=== PATIENT | female | born 1980 | race American Indian/Alaskan Native ===

== ENCOUNTER 2016-10-21 18:35 | Inpatient (IN) | payer MEDICAID ==
[2016-10-21] MEDS ORDERED: LACTATED RINGERS 1,000 ML ONE (19:53)
--- NOTE | 2016-10-21 20:07 | History and Physical Report ---
History of Present Illness Date of examination: 10/21/16 Date of admission: 10/21/16 19:45 Chief complaint: No movement since last night, 29w1d. Confirmed demise by official bedside u/s. History of present illness: EDC Calculations by LMP: 12/31/2016 Past History : 5 Term Births: 3 Premature Births: 0 Living Children: 3 Para: 3 Mult. Births: 0 Prev : 3 Prev. attempt? 1 Aborta: 1 Spont. Ab: 1 # 1 Delivery date: 1994 Weeks Gestation: 39 labor: no Delivery type: Anesthesia type: epidural Delivery location: [place] Sex: Male weight: 8#6 Comments: failure to progress - 5cm # 2 Delivery date: 1999 Weeks Gestation: term labor: no Delivery type: Delivery location: [place] Sex: Male weight: 8#15 Comments: Breech # 3 Delivery date: 2005 Weeks Gestation: term labor: no Delivery type: Delivery location: [place] Infant Sex: Female weight: 7#5 Comments: Pre-e. 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 Infection History Hx of STD: none HIV Risk Eval: no Hepatitis B Risk Eval: low risk Varicella/Chicken Pox Status: Previous Disease TB Risk: no Genetic History ADVANCED MATERNAL AGE Congenital Heart Defect: Mom: no Dad: no Kamla Disease: Mom: no Dad: no Thalassemia Mom: no Dad: no Neural Tube Defect Mom: no Dad: no Down's Syndrome Mom: no Dad: no Supa-Sachs Mom: no Dad: no Sickle Cell Disease/Trait Mom: no Dad: yes Comments: FOC SCT Hemophilia Mom: no Dad: no Muscular Dystrophy Mom: no Dad: no Cystic Fibrosis Mom: no Dad: no [place] Chorea Mom: no Dad: no Mental Retardation Mom: no Dad: no Fragile X Mom: no Dad: no Other Genetic/Chromosomal Disorder Mom: no Dad: no Child w/other defect Mom: no Dad: no Enviromental Exposures Xray Exposure: no Medication, drug, or alcohol use since LMP: no Chemical/Other Exposure: no Exposure to Cat Liter: no Hx of Parvovirus (Fifth Disease): no 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 denies: smoking, alcohol abuse, prescription drug abuse , IV drug use - Obstetrical History Expected Date of Delivery: 12/31/16 Actual Gestation: 29 Week(s) 6 Day(s) : 5 Para: 3 Hx # Term Pregnancies: 3 Number of Pregnancies: 0 Spontaneous Abortions: 1 Induced : 0 Number of Living Children: 3 Medications and Allergies Allergies Allergy/AdvReac Type Severity Reaction Status Date / Time No Known Allergies Allergy Verified 10/21/16 18:59 Review of Systems All systems: negative - Vital Signs Vital signs: Vital Signs Pulse BP Pulse Ox 83 149/91 97 10/21/16 18:57 10/21/16 18:57 10/21/16 18:57 Temp Pulse Resp BP Pulse Ox 98.6 F 70 18 137/85 98 10/21/16 19:07 10/21/16 19:47 10/21/16 19:07 10/21/16 19:44 10/21/16 19:47 - Physical Exam Breasts: Positive: normal Cardiovascular: Regular rate Lungs: Positive: Clear to auscultation, Normal air movement Abdomen: Positive: normal appearance, soft Genitourinary (Female): Positive: normal external genitalia, normal perenium Vulva: both: normal Vagina: Positive: normal moisture Uterus: Positive: normal size, normal contour Anus/Rectum: Positive: normal perianal skin Extremities: Positive: normal Deep Tendon Reflex Grade: Normal +2 - Obstetrical FHR: other (no FHT, demise confirmed with bedside u/s) Results All other labs normal. Laboratory Data-Patient Name: LAYTON SMITH Test Date Result Blood Type 06/20/2016 O Rh 06/20/2016 Positive Antibody Screen negative Rubella 06/20/2016 immune Serology (RPR) 06/20/2016 non-reactive HBsAg 06/20/2016 Negative Hemoglobin 09/26/2016 11.3 Hematocrit 09/26/2016 34.5 Platelets 06/20/2016 276 [id number] Chlamydia DNA 05/24/2016 Negative GC DNA/Culture 05/24/2016 Urine Culture 06/20/2016 Final report Group B Strep cult TNP PAP 11/13/2015 normal HIV 06/20/2016 Negative AFP/Quad Screen 07/28/2016 Glucola Test 3hr GTT (Fasting) 1 hr 2 hr 3 hr [facility]-Patient Name:LAYTON SMITH Test Date Result Varicella Ab Sickle Cell 06/20/2016 Negative PPD Fibronectin Cystic Fibrosis Negative Parvovirus Immune TSH Free T4 Hepatitis C ALT AST Uric Acid Creatinine 24 hr Urine Protein PANTERA Assessment and Plan 36y/o , hx c/s x 3, 29w6d. Patient called office around 1600 today and c/o decreased movement but states she was at work and admits to not paying much attention. Once she got home, she attempted FKC and could not illicit movement. No FHT asculted in triage and demise confirmed by official bedside u/s. complications: referred to [facility] d/t AMA and hx pre-e. Patient had unspecified chest pain @ 18 weeks and was referred to cardiology and cleared. Dr. Velarde aware and plan is to do c/s @ 2000. Patient coping well with news of loss, offered to call [place] or support person but patient declined. FOC is currently out of the state. - Patient Problems (1) Previous section Current Visit: Yes Status: Acute Plan to address problem: Prep for repeat c/s 2200 tonight (patient last ate @ 1700, she also needs to wait for child custody evaluator) (2) 29 weeks gestation of Current Visit: Yes Status: Acute (3) demise in cabello greater than 22 weeks gestation, antepartum Current Visit: Yes Status: Acute (4) Elevated blood pressure affecting in third trimester, antepartum Current Visit: Yes Status: Acute Plan to address problem: Unsure if initial b/p r/t emotional distress, patient does have Hx pre-e previous Pre-e and DIC labs ordered
[2016-10-21 20:13] LABS: Basophils % (Auto) 0.6 % (0.0-1.8); Eosinophils % (Auto) 0.9 % (0.0-4.3); Hematocrit 36.7 % (30.3-42.9); Hemoglobin 12.4 gm/dl (10.1-14.3); Mean Corpuscular HGB Conc 34 % (30-34); Mean Corpuscular Hemoglobin 33 pg (28-32); Mean Corpuscular Volume 97 fl (79-97); Platelet Count 206 K/mm3 (140-440); Red Blood Count 3.78 M/mm3 (3.65-5.03); Red Cell Distribution Width 13.8 % (13.2-15.2); White Blood Count 6.9 K/mm3 (4.5-11.0)
[2016-10-21 20:22] LABS: INR 0.94 (0.87-1.13)
[2016-10-21 20:23] LABS: Partial Thromboplastin Time 25.6 Sec. (24.2-36.6)
[2016-10-21] MEDS ORDERED: EMLA TP PRN (20:33)
[2016-10-21] MEDS ORDERED: BICITRA PO ONE (20:33)
[2016-10-21] MEDS ORDERED: REGLAN IV ONE (20:33)
[2016-10-21] MEDS ORDERED: PEPCID IV ONE (20:33)
[2016-10-21 20:49] LABS: Alanine Aminotransferase 18 units/L (7-56); Albumin 3.5 g/dL (3.9-5); Albumin/Globulin Ratio 1.1 %; Alkaline Phosphatase 83 units/L (35-129); Anion Gap 17 mmol/L; Bilirubin,Total 0.4 mg/dL (0.1-1.2); Blood Urea Nitrogen 6 mg/dL (7-17); Calcium 8.8 mg/dL (8.4-10.2); Carbon Dioxide 21 mmol/L (22-30); Chloride 100.8 mmol/L (98-107); Glucose 83 mg/dL (65-100); Potassium 3.9 mmol/L (3.6-5.0); Sodium 135 mmol/L (137-145); Total Protein 6.7 g/dL (6.3-8.2)
[2016-10-21] MEDS ORDERED: PITOCin/NS 20 UNIT/1000ML DRIP 20 UNITS/1,000 ML BAG IV SCH (21:00)
[2016-10-21] MEDS ORDERED: ANCEF/STERILE WATER 2 GM/20 ML 2 GM/20 ML SYRINGE IV NR (21:00)
[2016-10-21] MEDS ORDERED: LACTATED RINGERS 1,000 ML IV SCH (21:00)
[2016-10-21] MEDS ORDERED: MORPHINE ONE (21:59)
--- NOTE | 2016-10-21 22:03 | Event Note ---
Date: 10/21/16 Patient resting in bed. Patient understandably subdued. Patient informed the risks of the surgery include bleeding possibly bleeding heavy enough to require blood transfusion, infection possible damage to bowel bladder ureter. All questions answered. Patient agrees to proceed
[2016-10-21] MEDS ORDERED: ZOFRAN ONE (22:24)
[2016-10-21] MEDS ORDERED: NACL 0.9% IR ONE (22:32)
[2016-10-21] MEDS ORDERED: WATER FOR IRRIG STERILE IR ONE (22:32)
[2016-10-21] MEDS ORDERED: MINERAL OIL ONE (22:43)
[2016-10-21] MEDS ORDERED: DECADRON ONE (23:39)
[2016-10-21] MEDS ORDERED: TORADOL ONE (23:39)
[2016-10-21] MEDS ORDERED: SODIUM CHLORIDE FLUSH SYRINGE 10 ML IV PRN (23:45)
--- NOTE | 2016-10-21 23:54 | Operative Report ---
Operative Report Operative Report: Date of procedure: 10/21/2016 Pre-operative diagnosis: Intrauterine at 29 weeks with intrauterine demise with history of 3 previous sections Post-operative diagnosis: Same plus severe pelvic adhesive disease and uterine fibroids Procedure name(s): Repeat low transverse section with lysis of adhesions Surgeon: Stephane Velarde MD Shot Grinder Operator: Anesthesia: Spinal EBL: 700 mL Complications: None Findings: Patient had adhesions between the anterior abdominal wall and anterior uterus involving omentum and dense adhesions between the anterior uterus and bladder. Male infant Apgars 0 at 1 minute and 0 at 5 minutes. Approximately 6 cm of clotted blood in the umbilical cord near the . Patient uterus had multiple small leiomyomata. Specimen(s): Placenta Procedure: The patient was brought to the operating room. A spinal was placed without any complications. She was then placed in left lateral tilt. Prepped and draped in the usual sterile manner. After testing for adequate anesthesia level, a Pfannenstiel incision was made through her previous scar. This incision was taken down to the fascia. The fascia was then nicked in the midline. This incision was extended out laterally with Hoang scissors. The fascia was then sharply and bluntly from the underlying rectus muscles. The rectus muscles were bluntly and sharply . The peritoneum was then entered with the monorail charger operator's fingers. This incision was spread vertically with care not to damage the bladder below. The bladder flap was then formed sharply and bluntly with Metzenbaum scissors. The [place] self- retaining tractor was then placed without any difficulty. A transverse incision was made in lower uterine segment. This incision was extended laterally with the operators fingers. The amniotic sac was then entered bluntly with the monorail charger operator's fingers. The was delivered from the vertex position. Cord was double clamped and cut. The infant was then passed to the nurse. The above scores were given. The placenta was then bluntly removed. The uterus could not be externalized due to adhesions and the uterus was wiped clean the remaining products. The uterine incision was closed in layers. The first incision was closed in a locking manner using 0 Vicryl. This was followed by imbricating stitch also with 0 Vicryl. This closure was hemostatic. The bladder flap was copiously irrigated and found to be hemostatic. The pelvis was copiously irrigated and found to be hemostatic. The retractors were removed. The rectus muscles were inspected and found to be hemostatic. The fascia was then closed in a running manner using 0 Vicryl. This incision was hemostatic irrigation Bovie. The skin was reapproximated with 4-0 Vicryl subcuticularly. The patient tolerated procedure well. Her urine was clear. Instrument count was incorrect. Bovie scratch pad was missing. Patient had a portable KUB done on the operating table which showed no evidence of foreign objects.The patient was accompanied to recovery room in good condition
[2016-10-21] MEDS ORDERED: PHENERGAN PR PRN (23:56)
[2016-10-21] MEDS ORDERED: NARCAN 0.4 MG/1 ML IV PRN (23:56)
[2016-10-21] MEDS ORDERED: DILAUDID IV PRN (23:56)
[2016-10-21] MEDS ORDERED: PHENERGAN PO PRN (23:56)
[2016-10-21] MEDS ORDERED: ZOFRAN IV PRN (23:56)
--- NOTE | 2016-10-21 23:59 | Post Anesthesia Evaluation ---
- Post Anesthesia Evaluation Patient Participated: Yes Airway Patent: Yes Stable Respiratory Function: Yes Nausea/Vomiting: No Temp > 96.8F: Yes Pain Manageable: Yes Adequeate Hydration: Yes Anesthesia Complications: No Block Receding Appropriately: Yes Patient on Ventilator: No
--- NOTE | 2016-10-21 23:59 | Anesthesia Consultation ---
Anesthesia Consult and Med Hx Date of service: 10/21/16 - Airway Anesthetic Teeth Evaluation: Good ROM Head & Neck: Adequate Mental/Hyoid Distance: Adequate Mallampati Class: Class II Intubation Access Assessment: Probably Good - Pulmonary Exam CTA: Yes - Cardiac Exam Cardiac Exam: RRR - Pre-Operative Health Status ASA Pre-Surgery Classification: ASA2 Proposed Anesthetic Plan: Spinal - Pulmonary Hx Asthma: No COPD: No Hx Pneumonia: No - Cardiovascular System Hx Hypertension: No - Central Nervous System Hx Seizures: No Hx Psychiatric Problems: No - Endocrine Hx Renal Disease: No Hx End Stage Renal Disease: No Hx Hypothyroidism: No Hx Hyperthyroidism: No - Hematic Hx Anemia: No Hx Sickle Cell Disease: No - Other Systems Hx Alcohol Use: No
--- NOTE | 2016-10-21 23:59 | Anesthesia Day of Surgery ---
Anesthesia Day of Surgery - Day of Surgery Patient Examined: Yes Patient H&P Reviewed: Yes Patient is NPO: Yes
--- NOTE | 2016-10-22 00:02 | XRay Report ---
FINAL REPORT EXAM: XR ABDOMEN 1V AP HISTORY: ITEM MISSING FROM SURGICAL COUNT COMPARISONS: None. FINDINGS: AP portable view of the pelvis No foreign radiodense object identified. Gravid uterus. Probable adjacent free air in the pelvis status post . Imaged portion of the skeleton is unremarkable. IMPRESSION: No radiodense object identified. If there is persistent clinical concern, consider a separate radiograph of the object missing from the surgical count and comparison with this examination for more detailed and sensitive evaluation.
[2016-10-22] MEDS ORDERED: LANSINOH TP PRN (01:00)
[2016-10-22] MEDS ORDERED: PITOCin/NS 20 UNIT/1000ML DRIP 20 UNITS/1,000 ML BAG IV SCH (01:00)
[2016-10-22] MEDS ORDERED: TUCKS PAD TP PRN (01:00)
[2016-10-22] MEDS ORDERED: NARCAN 0.4 MG/1 ML IV PRN (01:00)
[2016-10-22] MEDS ORDERED: SODIUM CHLORIDE FLUSH SYRINGE 10 ML IV NR (01:00)
[2016-10-22] MEDS: D5LR 1,000 ML IV SCH ×3 (01:29→17:46)
[2016-10-22] MEDS: TORADOL IV SCH ×4 (06:00→19:15)
[2016-10-22] MEDS: PRENATAL VITAMIN PO SCH (09:30)
[2016-10-22] MEDS: FEOSOL PO SCH (09:30)
[2016-10-22] MEDS: ANCEF/NS 1 GM/50 ML 1 GM/50 ML BAG IV SCH ×2 (09:30→17:45)
[2016-10-22] MEDS ORDERED: ANCEF/NS 1 GM/50 ML 1 GM/50 ML BAG IV NR (11:00)
--- NOTE | 2016-10-22 11:32 | Progress Note ---
Assessment and Plan - Patient Problems (1) Delivered by section Current Visit: Yes Status: Acute Plan to address problem: Postoperative day #1. Discuss operative findings with patient and questions answered. Patient without fever. We'll ambulate in halls. We will continue routine postoperative care. Patient's postoperative hematocrit pending (2) demise in cabello greater than 22 weeks gestation, antepartum Current Visit: Yes Status: Acute Plan to address problem: Discussed operative findings. Patient unsure about having an autopsy performed. Placental be sent to pathology. Subjective Date of service: 10/22/16 Patient Reports: Positive: feels better, still having pain, pain is less, no flatus, nausea, vomiting (last night), afebrile Objective Vital Signs - 12hr 10/21/16 10/21/16 10/21/16 23:44 23:46 23:50 Temperature 97.6 F Pulse Rate 66 56 L Pulse Rate [ Left From Monitor] Respiratory 16 16 Rate Blood Pressure Blood Pressure [Left Arm] O2 Sat by Pulse 97 96 99 Oximetry 10/21/16 10/22/16 10/22/16 23:56 00:00 00:05 Temperature Pulse Rate 58 L 55 L 59 L Pulse Rate [ Left From Monitor] Respiratory 16 9 L 12 Rate Blood Pressure 151/86 153/89 Blood Pressure [Left Arm] O2 Sat by Pulse 98 98 99 Oximetry 10/22/16 10/22/16 10/22/16 00:10 00:15 00:20 Temperature Pulse Rate 69 56 L 60 Pulse Rate [ Left From Monitor] Respiratory 12 19 18 Rate Blood Pressure 157/89 159/89 150/81 Blood Pressure [Left Arm] O2 Sat by Pulse 99 97 97 Oximetry 10/22/16 10/22/16 10/22/16 00:25 00:30 00:35 Temperature Pulse Rate 60 64 64 Pulse Rate [ Left From Monitor] Respiratory 19 18 17 Rate Blood Pressure 138/89 142/93 147/85 Blood Pressure [Left Arm] O2 Sat by Pulse 98 98 97 Oximetry 10/22/16 10/22/16 10/22/16 00:40 00:45 00:50 Temperature Pulse Rate 66 66 67 Pulse Rate [ Left From Monitor] Respiratory 15 15 18 Rate Blood Pressure 143/83 145/86 149/83 Blood Pressure [Left Arm] O2 Sat by Pulse 97 97 98 Oximetry 0310/22/16 10/22/16 01:00 01:30 06:00 Temperature 98.3 F 97.7 F Pulse Rate Pulse Rate [ 70 Left From Monitor] Respiratory 20 20 Rate Blood Pressure Blood Pressure 132/67 [Left Arm] O2 Sat by Pulse Oximetry 10/22/16 10/22/16 06:10 09:39 Temperature 97.5 F L 97.7 F Pulse Rate Pulse Rate [ 70 70 Left From Monitor] Respiratory 18 18 Rate Blood Pressure Blood Pressure 113/67 120/76 [Left Arm] O2 Sat by Pulse Oximetry - General physical appearance well developed, moderate pain, obese - Respiratory normal respiratory effort - Abdomen soft, tender - Genitourinary normal external genitalia - Integumentary no rash, no growths, no abnormal pigmentation - Neurologic normal coordination - Psychiatric oriented to time, oriented to person, oriented to place, speech is normal, memory intact, other (patient is appropriately mourning) - Labs 10/21/16 19:45 10/21/16 19:45 Diabetes panel 10/21/16 Range/Units 19:45 Sodium 135 L (137-145) mmol/L Potassium 3.9 (3.6-5.0) mmol/L Chloride 100.8 (98-107) mmol/L Carbon Dioxide 21 L (22-30) mmol/L BUN 6 L (7-17) mg/dL Creatinine 0.5 L (0.7-1.2) mg/dL Glucose 83 (65-100) mg/dL Calcium 8.8 (8.4-10.2) mg/dL AST 24 (5-40) units/L ALT 18 (7-56) units/L Alkaline Phosphatase 83 (35-129) units/L Total Protein 6.7 (6.3-8.2) g/dL Albumin 3.5 L (3.9-5) g/dL Calcium panel 10/21/16 Range/Units 19:45 Calcium 8.8 (8.4-10.2) mg/dL Albumin 3.5 L (3.9-5) g/dL Pituitary panel 10/21/16 Range/Units 19:45 Sodium 135 L (137-145) mmol/L Potassium 3.9 (3.6-5.0) mmol/L Chloride 100.8 (98-107) mmol/L Carbon Dioxide 21 L (22-30) mmol/L BUN 6 L (7-17) mg/dL Creatinine 0.5 L (0.7-1.2) mg/dL Glucose 83 (65-100) mg/dL Calcium 8.8 (8.4-10.2) mg/dL Adrenal panel 10/21/16 Range/Units 19:45 Sodium 135 L (137-145) mmol/L Potassium 3.9 (3.6-5.0) mmol/L Chloride 100.8 (98-107) mmol/L Carbon Dioxide 21 L (22-30) mmol/L BUN 6 L (7-17) mg/dL Creatinine 0.5 L (0.7-1.2) mg/dL Glucose 83 (65-100) mg/dL Calcium 8.8 (8.4-10.2) mg/dL Total Bilirubin 0.4 (0.1-1.2) mg/dL AST 24 (5-40) units/L ALT 18 (7-56) units/L Alkaline Phosphatase 83 (35-129) units/L Total Protein 6.7 (6.3-8.2) g/dL Albumin 3.5 L (3.9-5) g/dL
[2016-10-22 13:02] LABS: Hematocrit 23.3 % (30.3-42.9); Hemoglobin 7.7 gm/dl (10.1-14.3)
[2016-10-22 15:45] LABS: Hematocrit 21.7 % (30.3-42.9); Hemoglobin 7.2 gm/dl (10.1-14.3)
[2016-10-22] MEDS ORDERED: ANCEF/NS 1 GM/50 ML 1 GM/50 ML BAG IV ONE (17:21)
[2016-10-22] MEDS ORDERED: NACL 0.9% 500 ML 500 ML IV ONE (18:25)
[2016-10-22] MEDS ORDERED: TYLENOL PO ONE (18:30)
[2016-10-22] MEDS ORDERED: BENADRYL PO NR (19:00)
[2016-10-23] MEDS: MOTRIN PO PRN (00:35)
[2016-10-23 08:56] LABS: Hematocrit 25.8 % (30.3-42.9); Hemoglobin 8.5 gm/dl (10.1-14.3)
[2016-10-24] MEDS: MOTRIN PO PRN ×2 (04:35→09:57)
[2016-10-24] MEDS: NORCO 5/325 PO PRN ×2 (04:40→09:57)
--- NOTE | 2016-10-24 08:05 | Discharge Summary ---
Providers - Providers Date of Admission: 10/21/16 19:45 Date of discharge: 10/24/16 (s/p repeat c/s ; IUFD) Attending physician: LV CLEMONS 10/23/16 15:34 Consult to Case Management [CONS] Routine Services Needed at Discharge: Fluorescent Solution Mixer Notified:: yes Phone number called:: [phone] Was contact made?: Yes If yes, spoke with:: margarito Time called:: 15:35 Comment:: IUFD @ 29+ weeks Primary care physician: LV CLEMONS Hospitalization Reason for admission: IUFD Delivery: Procedure: repeat low transverse Episiotomy: none Laceration: none Incision: normal, dry, intact Other procedures: none complications: transfusion (will rx iron @ d/c) Discharge diagnosis: intrapartum demise [place] baby: male Hospital course: repeat c/s; prev X 2; IUFD; lysis of adhesions during surgery Pt w/o complaint Will f/u with groups via [employer] VSS FF below umb Lochia scant H&H 04/07 drop r/t blood loss from surgery; will RX iron @ d/c Doing well s /p section; appropriate grieving Pt has plans to join support grp via [employer]. P: d/c today with instructions Pt will f/u with Monday for care. Appt to be made prior to d/c Condition at discharge: Good Disposition: DISCHARGED TO HOME OR SELFCARE - Discharge Diagnoses (1) Delivered by section Status: Acute Comment: rto 1 week (2) demise Status: Acute Comment: pt will join support group and she states she has support at home and [facility] Plan - Discharge Medications Prescriptions: Docusate Sodium [Colace] 100 mg PO BID PRN #60 capsule PRN Reason: Constipation Ferrous Sulfate [Feosol 325 MG tab] 325 mg PO BID #60 tablet Ibuprofen [Motrin 800 MG tab] 800 mg PO Q6H PRN #30 tablet PRN Reason: Pain oxyCODONE /ACETAMINOPHEN [Percocet 5/325 mg] 1 - 2 tab PO Q4H PRN #30 tablet PRN Reason: Pain, Moderate - Provider Discharge Summary Activity: routine, no sex for 6 weeks, no heavy lifting 4 weeks, no strenuous exercise Diet: routine Instructions: routine Additional instructions: [] Smoking cessation referral if applicable(refer to patient education folder for contact #) [] Refer to [facility] Booklet Call your doctor immediately for: * Fever > 100.5 * Heavy vaginal bleeding ( >1 pad per hour) * Severe persistent headache * Shortness of breath * Reddened, hot, painful area to leg or breast * Drainage or odor from incision. * Keep incision clean and dry at all times and follow doctor's instructions regarding bathing/showering - Follow up plan Follow up: LV CLEMONS MD [Primary Care Provider] - 10/31/16 (please keep appointment as scheduled with on Monday10/31/16 @ 1015 Take medications as prescribed. Call with concerns. )
[2016-10-24] MEDS: PRENATAL VITAMIN PO SCH (09:57)
[2016-10-24] MEDS: FEOSOL PO SCH (09:57)
--- NOTE | 2016-10-24 10:15 | Ultrasound Report ---
OB LIMITED Technique: Transabdominal ultrasound with Doppler interrogation. Gestation: Single Position: Breech Heart Rate: No heart tones could be detected.
[2016-10-24 15:36] VITALS: BP 140/74
== END 2016-10-24 12:45 | disposition home or self-care (01) | DRG 765 ==
LOC: TRG 18:35 → LD 19:45 → TRG 19:45 → OB 10-22 01:23
PROVIDERS: ADMIT Obstetrics & Gynecology; ATTEND Obstetrics & Gynecology
PROC: 10D00Z1 Extraction of Products of Conception, Low, Open Approach (ICD-10-PCS; principal; 2016-10-21)
PROC: 0UN90ZZ Release Uterus, Open Approach (ICD-10-PCS; 2016-10-21)
PROC: 30233N1 Transfusion of Nonautologous Red Blood Cells into Peripheral Vein, Percutaneous Approach (ICD-10-PCS; 2016-10-21)
DX: O36.4XX0 Maternal care for intrauterine death, not applicable or unspecified (principal); D62 Acute posthemorrhagic anemia; O34.211 Maternal care for low transverse scar from previous cesarean delivery; O99.89 Other specified diseases and conditions complicating pregnancy, childbirth and the puerperium; N73.6 Female pelvic peritoneal adhesions (postinfective); O99.284 Endocrine, nutritional and metabolic diseases complicating childbirth; E78.5 Hyperlipidemia, unspecified; Z3A.29 29 weeks gestation of pregnancy; Z37.1 Single stillbirth; O09.523 Supervision of elderly multigravida, third trimester
CPT/HCPCS: 36415; 74000; 76815; 80053; 85014; 85018; 85025; 85379; 85384; 85610; 85730; 86592; 86850; 86900; 86901; 86920; 88307; C1765; J0690; J1100; J1170; J1885; J2270; J2405; J2590; J2765; J7040; J7120; J7121; P9016; Q0169

== ENCOUNTER 2017-03-10 21:13 | Emergency (ER) | payer SELFPAY | END 2017-03-10 22:05 | disposition left against medical advice (07) | LOC: ED 21:13 | DX: R10.30 Lower abdominal pain, unspecified (principal); Z53.21 Procedure and treatment not carried out due to patient leaving prior to being seen by health care provider ==

== ENCOUNTER 2018-12-02 17:14 | Inpatient (IN) | payer MEDICAID ==
[2018-12-02] MEDS ORDERED: HEPARIN IV ONE (17:19)
[2018-12-02] MEDS ORDERED: NACL 0.9% 1000 ML 1,000 ML IV ONE (17:19)
[2018-12-02] MEDS ORDERED: ZOFRAN IV ONE (17:19)
[2018-12-02 17:35] LABS: Basophils # (Auto) 0.1 K/mm3 (0.0-0.1); Basophils % (Auto) 0.9 % (0.0-1.8); Eosinophils # (Auto) 0.1 K/mm3 (0.0-0.4); Eosinophils % (Auto) 1.1 % (0.0-4.3); Hematocrit 40.6 % (30.3-42.9); Hemoglobin 13.7 gm/dl (10.1-14.3); Lymphocytes # (Auto) 1.8 K/mm3 (1.2-5.4); Lymphocytes % (Auto) 32.4 % (13.4-35.0); Mean Corpuscular HGB Conc 34 % (30-34); Mean Corpuscular Volume 95 fl (79-97); Monocytes # (Auto) 0.6 K/mm3 (0.0-0.8); Monocytes % (Auto) 11.4 % (0.0-7.3); Platelet Count 302 K/mm3 (140-440); Red Blood Count 4.29 M/mm3 (3.65-5.03); Red Cell Distribution Width 12.4 % (13.2-15.2)
[2018-12-02] MEDS ORDERED: ATROPINE 0.1% (CARDIAC) ONE (17:39)
[2018-12-02] MEDS ORDERED: MORPHINE ONE (17:39)
[2018-12-02] MEDS ORDERED: XYLOCAINE CARDIAC IV ONE (17:39)
[2018-12-02] MEDS ORDERED: ADRENALIN ONE (17:39)
[2018-12-02] MEDS ORDERED: VERSED ONE (17:40)
[2018-12-02] MEDS ORDERED: MORPHINE IV ONE (17:40)
[2018-12-02] MEDS ORDERED: SUBLIMAZE ONE (17:40)
[2018-12-02] MEDS ORDERED: HEPARIN/NS 5000 UNIT/500ML(CATH LAB) 1,500 ML IR ONE (17:40)
[2018-12-02] MEDS ORDERED: NITROGLYCERIN SYRINGE 3 ML ONE (17:40)
[2018-12-02] MEDS ORDERED: XYLOCAINE 2% INFILTRATI ONE (17:40)
[2018-12-02] MEDS ORDERED: CALAN ONE (17:40)
[2018-12-02] MEDS ORDERED: NEO SYNEPHRINE/NS Syringe(OR USE) IV ONE (17:41)
[2018-12-02] MEDS ORDERED: NACL 0.9% 500 ML 500 ML ONE (17:41)
[2018-12-02 17:45] LABS: INR 0.89 (0.87-1.13)
[2018-12-02 17:46] LABS: Partial Thromboplastin Time 28.6 Sec. (24.2-36.6)
--- NOTE | 2018-12-02 17:47 | History and Physical Report ---
History of Present Illness Chief complaint: My chest hurts History of present illness: 38 YO Female with Obesity presents to ED for evaluation. Pt states that she experienced an acute onset of severe chest pain today while taking a shower. Pt states that pain is 10/10, substernal, localized to the left chest with radi ation to the left back, crushing and heavy in nature, sharp, constant, not worsened with exertion, not relieved with rest, associated with shortness of breath and diaphoresis. EMS notified, and upon arrival the patient was found to be in distress with EKG changes consistent with Acute [place]. Code STEMI called and the patient transported to [facility] ED. Pt seen and evaluated in ED and found to have Stable Angina with Acute [place]. Cardiology team consulted in ED. Pt taken emergently to the medical lab assistant for intervention. Pt admitted to ICU. Past History Past Medical History: other (Obesity) Past Surgical History: Social history: single. denies: smoking, alcohol abuse, prescription drug abuse Family history: diabetes, hypertension Medications and Allergies Allergies Allergy/AdvReac Type Severity Reaction Status Date / Time No Known Allergies Allergy Verified 10/21/16 18:59 Home Medications Medication Instructions Recorded Confirmed Last Taken Type Ferrous Sulfate [Feosol 325 MG tab] 325 mg PO BID #60 tablet 10/21/16 Unknown Rx Ibuprofen [Motrin 800 MG tab] 800 mg PO Q6H PRN #30 tablet 10/21/16 Unknown Rx oxyCODONE /ACETAMINOPHEN [Percocet 1 - 2 tab PO Q4H PRN #30 tablet 10/21/16 Unknown Rx 5/325 mg] Docusate Sodium [Colace] 100 mg PO BID PRN #60 capsule 10/24/16 Unknown Rx Active Meds: Active Medications Sodium Chloride (Nacl 0.9% 1000 Ml) 1,000 mls @ 42 mls/hr IV ONCE ONE Stop: 12/03/18 17:07 Last Admin: 12/02/18 17:36 Dose: 42 mls/hr Documented by: Nitroglycerin/Dextrose (Tridil Drip 50mg/250ml) 50 mg in 250 mls @ 3 mls/hr IV TITR PAULINO; Protocol Review of Systems Constitutional: no weight loss, no weight gain, no fever, no chills Ears, nose, mouth and throat: no ear pain, no ear discharge, no tinnitis, no decreased hearing, no nose pain Breasts: no change in shape, no swelling, no mass Cardiovascular: chest pain, shortness of breath, no orthopnea, no palpitations, no rapid/irregular heart beat, no dyspnea on exertion, no paroxysmal nocturnal dyspnea, no claudication, no phlebitis, no leg edema Respiratory: no cough, no cough with sputum, no excessive sputum, no hemoptysis, no shortness of breath Gastrointestinal: no nausea, no vomiting, no diarrhea, no constipation Genitourinary Female: no pelvic pain, no flank pain, no menorrhagia, no dysuria, no urinary frequency, no urgency Rectal: no pain, no incontinence, no bleeding Integumentary: no rash, no pruritis, no redness, no sores, no wounds Neurological: no paralysis, no weakness, no parathesias, no numbness, no seizures, no syncope Psychiatric: no anxiety, no memory loss, no change in sleep habits, no sleep disturbances, no hypersomnia, no change in appetite, no suicidal ideation Endocrine: no cold intolerance, no heat intolerance, no polydipsia, no polyuria, no nocturia, no excessive sweating Hematologic/Lymphatic: no easy bruising, no easy bleeding, no lymphadenopathy, no lymphedema Allergic/Immunologic: no urticaria, no allergic rhinitis, no wheezing, no persistent infections, no anaphylaxis, no angioedema Exam - Constitutional General appearance: Present: mild distress - EENT Eyes: Present: PERRL ENT: hearing intact, clear oral mucosa - Neck Neck: Present: supple, normal ROM - Respiratory Respiratory effort: normal Respiratory: bilateral: CTA - Cardiovascular Heart Sounds: Present: S1 & S2. Absent: rub, click - Extremities Extremities: pulses symmetrical, No edema Peripheral Pulses: within normal limits - Abdominal General gastrointestinal: Present: soft, non-tender, non-distended, normal bowel sounds Female genitourinary: Present: normal - Integumentary Integumentary: Present: clear, warm, dry - Musculoskeletal Musculoskeletal: gait normal, strength equal bilaterally - Psychiatric Psychiatric: appropriate mood/affect, intact judgment & insight, memory intact, agitated - Neurologic Neurologic: CNII-XII intact, moves all extremities Results - Labs CBC & Chem 7: 12/02/18 17:17 12/02/18 17:17 Labs: Abnormal lab results 12/02/18 Range/Units 17:17 RDW 12.4 L (13.2-15.2) % [place] % (Auto) 11.4 H (0.0-7.3) % Assessment and Plan - Patient Problems (1) ST elevation myocardial infarction (STEMI) of anterolateral wall Status: Acute Plan to address problem: Pt admitted to ICU, Cardiology consulted in ED. Pt taken urgently to lab clerk for intervention, supportive care, pain control, lipid panel, risk factor reduction. DAPT versus therapeutic anticoagulation as per cardiology team. The high probability of a clinically significant, sudden or life threatening deterioration of the [cardiac, respiratory, renal] system(s) required my full and direct attention, intervention and personal management. The aggregate critical care time was [65] minutes. This time is in addition to time spent performing reported procedures but includes the following: [x] Data Review and interpretation [x] Patient assessment and monitoring of vital signs [x] Documentation [x] Medication orders and management (2) Obesity Status: Acute Qualifiers: Body mass index: BMI 32.0-32.9 Plan to address problem: Balanced diet, increased physical activity at discharge (3) DVT prophylaxis Status: Acute Plan to address problem: SCD to BLE while in bed,
[2018-12-02] MEDS ORDERED: SODIUM CHLORIDE FLUSH SYRINGE 10 ML IV PRN (17:48)
--- NOTE | 2018-12-02 17:48 | Emergency Department Report ---
ED Chest Pain HPI - General Chief Complaint: Chest Pain Stated Complaint: STEMI Time Seen by Provider: 12/02/18 17:19 Source: patient, EMS Mode of arrival: Stretcher Limitations: No Limitations - History of Present Illness Initial Comments: Ms. Erin Lewis is a 38 yo female without significant past medical history who presents with severe sudden onset of chest pain while in the shower. The pain was so severe that she dropped to her knees in pain. No syncope. She immediately called 911. EMS dispatch in pressure to take 4 baby aspirins which she took prior to arrival. She arrived per EMS. I evaluated EKG transmitted prior to her arrival. Anterolateral STEMI NOTED ON EKG. I Immediately spoke with Radiation Control Technician Dr. Stafford. Code STEMI activated. Our junior legal secretary has notified Cath team. No family history of heart disease as she can recall MD Complaint: chest pain -: Sudden Onset: other (while in the shower) Pain Location: substernal, left chest Pain Radiation: back Severity scale (0 -10): 5 Quality: tightness, aching, heaviness, sharp Consistency: constant Improves With: nothing Worsens With: nothing re: nausea, dyspnea - Related Data Previous Rx's Medication Instructions Recorded Last Taken Type Ferrous Sulfate [Feosol 325 MG tab] 325 mg PO BID #60 tablet 10/21/16 Unknown Rx Ibuprofen [Motrin 800 MG tab] 800 mg PO Q6H PRN #30 tablet 10/21/16 Unknown Rx oxyCODONE /ACETAMINOPHEN [Percocet 1 - 2 tab PO Q4H PRN #30 tablet 10/21/16 Unknown Rx 5/325 mg] Docusate Sodium [Colace] 100 mg PO BID PRN #60 capsule 10/24/16 Unknown Rx Allergies Allergy/AdvReac Type Severity Reaction Status Date / Time No Known Allergies Allergy Verified 10/21/16 18:59 Heart Score - HEART Score History: Slightly suspicious EKG: Significant ST-depression Age: < 45 Risk factors: No known risk factors Troponin: 1-3x normal limit HEART Score: 3 ED Review of Systems ROS: Stated complaint: STEMI Other details as noted in HPI Comment: All other systems reviewed and negative Constitutional: denies: fever, malaise Respiratory: denies: cough Cardiovascular: denies: chest pain ED Past Medical Hx - Past Medical History Previous Medical History?: No Hx Hypertension: No Hx Congestive Heart Failure: No Hx Diabetes: No Hx Deep Vein Thrombosis: No Hx Renal Disease: No Hx Sickle Cell Disease: No Hx Seizures: No Hx Asthma: No Hx COPD: No Hx HIV: No - Surgical History Past Surgical History?: Yes Additional Surgical History: x4 - Family History Family history: diabetes, hypertension - Social History Smoking Status: Never Smoker Substance Use Type: None Other Social History: 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 Stopped working 6 months ago to stay at home with her young child. She has 5 children. - Medications Home Medications: Home Medications Medication Instructions Recorded Confirmed Last Taken Type Ferrous Sulfate [Feosol 325 MG tab] 325 mg PO BID #60 tablet 10/21/16 Unknown Rx Ibuprofen [Motrin 800 MG tab] 800 mg PO Q6H PRN #30 tablet 10/21/16 Unknown Rx oxyCODONE /ACETAMINOPHEN [Percocet 1 - 2 tab PO Q4H PRN #30 tablet 10/21/16 Unknown Rx 5/325 mg] Docusate Sodium [Colace] 100 mg PO BID PRN #60 capsule 10/24/16 Unknown Rx ED Physical Exam - General Limitations: No Limitations General appearance: alert, other (appears anxious in severe pain) - Head Head exam: Present: atraumatic, normocephalic - Eye Eye exam: Present: normal appearance - ENT ENT exam: Present: mucous membranes moist - Neck Neck exam: Present: normal inspection, full ROM - Respiratory Respiratory exam: Present: normal lung sounds bilaterally. Absent: respiratory distress, wheezes, rales, rhonchi - Cardiovascular Cardiovascular Exam: Present: regular rate, normal rhythm, normal heart sounds, other (equal radial pulses 2+). Absent: systolic murmur, diastolic murmur, rubs, gallop - GI/Abdominal GI/Abdominal exam: Present: soft, normal bowel sounds. Absent: distended, tenderness, guarding, rebound - Extremities Exam Extremities exam: Present: normal inspection - Back Exam Back exam: Present: normal inspection - Neurological Exam Neurological exam: Present: alert, oriented X3 - Psychiatric Psychiatric exam: Present: normal mood, anxious - Skin Skin exam: Present: warm, dry, intact, normal color. Absent: rash ED Medical Decision Making - Lab Data Result diagrams: 12/02/18 17:17 - EKG Data 12/02/18 17:45 EKG obtained 1721 Junctional rhythm rate 100 beats a minute wide QRS ST elevation V3 V4 V5 and V6 progressing from previously transmitted EKG - Medical Decision Making Anterolateral STEMI, Dr. Stafford evaluated Ms. Lewis in the ED. She took 4 baby aspirin tablets at home. Ordered heparin bolus and nitroglycin infusion. Admitted to hospitalist service as requested by cardiology service. Will be taken to engineering lab technician Critical Care Time: Yes Critical care time in (mins) excluding proc time.: 40 Critical care attestation.: If time is entered above; I have spent that time in minutes in the direct care of this critically ill patient, excluding procedure time. 40 minutes of critical care time excluding procedures were used in the care of the patient. Patient required multiple assessments and interventions. I reviewed the electronic medical record. I spoke with consultants involved in the care of the patient. ED Disposition Clinical Impression: ST elevation myocardial infarction (STEMI) of anterolateral wall Disposition: [id number] OP ADMIT IP TO THIS HOSP Is pt being admited?: Yes Does the pt Need Aspirin: No Condition: Stable
[2018-12-02 17:52] LABS: Creatine Kinase MB 2.7 ng/mL (0.0-4.0)
[2018-12-02 17:54] LABS: BUN/Creatinine Ratio 22; Blood Urea Nitrogen 13 mg/dL (7-17); Calcium 9.6 mg/dL (8.4-10.2); Hemolysis Index 8
[2018-12-02] MEDS: HEPARIN 10,000 UNITS/10 ML ONE ×2 (17:57→18:03)
[2018-12-02] MEDS ORDERED: TRIDIL DRIP 50MG/250ML 50 MG/250 ML BOTTLE IV SCH (18:00)
[2018-12-02] MEDS ORDERED: BRILINTA ONE (18:29)
[2018-12-02] MEDS ORDERED: ALUM-MAG HYDROX-SIMETH 200-200-20MG/5ML ONE (18:29)
[2018-12-02] MEDS ORDERED: COLACE PO PRN (19:00)
[2018-12-02 19:03] LABS: Chol/HDL Ratio 2.81 %; HDL Cholesterol 82 mg/dL (40-59); LDL Cholesterol,Direct 154 mg/dL (50-130)
[2018-12-02] MEDS ORDERED: HEPARIN/ 0.45% NACL-25,000 UNIT/500 ML 25,000 UNIT/500 ML BAG ONE (19:04)
[2018-12-02] MEDS ORDERED: TRIDIL DRIP 50MG/250ML 50 MG/250 ML BOTTLE IV ONE (19:13)
--- NOTE | 2018-12-02 19:47 | Cardiac Catherization Report ---
CARDIAC CATHETERIZATION AND CORONARY INTERVENTION REPORT CLINICAL INFORMATION: The patient is a 38-year-old female, who started having chest pain, severe while she was taking shower around 3:00-3:30 p.m. The pain is very severe, associated with shortness of breath and the whole anterior chest is hurting. The pain is so severe she called the paramedics and initial EKG showed sinus rhythm with ST elevations in the lateral precordial leads. After coming to the Emergency Room, her pain is some better, but the EKGs showed slightly sinus junctional tachycardia with prolonged QRS and ST elevations in the anterior leads suggest with acute anterolateral injury. Hence, the patient was taken to the catheterization laboratory on an emergency basis. PAST MEDICAL HISTORY: Essentially unremarkable. She accepts that she delivered a baby in 07/2018. Otherwise; no history of hypertension, diabetes or previous cardiac history. MEDICATION: Only medication she was on is vitamin. DESCRIPTION OF PROCEDURE: The patient was brought to the catheterization laboratory on an emergency basis. Right wrist area and forearm thoroughly cleansed with Betadine solution. Sterile drapes were applied. Local anesthesia was achieved using 2% Xylocaine. The patient received 2 mg of morphine in the Emergency Room. Right radial artery puncture was made using 21-gauge arterial puncture needle. Subsequently, 5-Cuban slender sheath was introduced. A 6-Cuban EBU 3.5 guiding catheter was advanced and engaged the left coronary artery. Angiogram showed RCA to be widely patent. Angiograms of the right and left coronary artery were obtained. Subsequently, procedure was converted to interventional procedure, namely imaging the LAD with intravascular ultrasound. At the end of the procedure angiogram showed no complications of dissection or perforation. Catheter and sheath were removed. Good hemostasis was achieved with radial band. Following findings were noted: HEMODYNAMICS: 1. Opening aortic pressure 138/88. 2. Left ventriculogram was not performed. 3. Right coronary artery dominant vessel arises normally from anterior cusp, angiographically smooth and normal. 4. Left coronary artery arises normally from left coronary cusp. Left main is short, no smooth or normal. Circumflex artery nondominant vessel is tortuous, but angiographically smooth and normal. 5. LAD in the proximal part without significant disease. However, starting from the high mid LAD to distal LAD shows diffuse narrowing. However, HUANG 3 flow was noted. No focal lesions were noted. After angiograms the patient's chest pain is completely improved. Hence, no balloon angioplasty or stenting was performed. However, considering her significant EKG findings and intravascular ultrasound of the LAD was performed. The patient has indwelling 6-Cuban EBU 3.5 guiding catheter. The patient was given 5000 units of heparin. The patient received 5000 units of heparin in the Emergency Room. In a standard fashion Responsys intravascular ultrasound catheter was advanced starting from the left main to the mid LAD. This showed left main to be 5 mm in size and without any significant disease appears to be normal. Proximal LAD, which is 4.5 mm in size without significant disease. Entire mid LAD shows diffuse disease throughout with moderate to severe plaque diffusely noted. In the proximal LAD, the patient's vessel size was found to be 4.0 x 4.5 mm. Lumen area was found with 2.4 x 3.2 with 5.6 square millimeter area. In the mid LAD size was found to be 4.0 x 4.5 mm size of the vessel with lumen area of 2.2 x 2.7 mm with 4.8 square millimeters. It is to be noted the mid LAD and distal LAD is diffusely diseased. No focal lesions were noted. Considering this, it was felt the patient's main problem is maybe is severe spasm of the LAD causing her EKG changes and chest pain. After the angiograms the patient did not have any chest pain and an EKG was performed immediately after the procedure, which showed no evidence of ST elevations with sinus rhythm at rate of 72 beats per minute and except for poor R-wave progression and low voltage complexes in the precordial leads. At the end of the procedure the patient is chest pain free. Vital signs have been stable. Rhythm has been stable throughout the procedure. The patient was sedated starting at 1757 with IV Versed and fentanyl after evaluation for moderate sedation. She was monitored throughout the procedure with EKG monitoring, hemodynamic monitoring and pulse oximetry. The patient tolerated it well. Monitoring the moderate sedation at 1820 hours. At the end of the procedure the patient is talking normally and moving all the extremities and breathing normally. FINAL IMPRESSION: Acute anterolateral myocardial infarction consistent with ST elevation myocardial infarction. Angiogram showing patent arteries, but [id number] diffuse disease in the mid and distal LAD on the intravascular ultrasound, but; however, HUANG 3 flow in all the vessels. It was felt the patient probably has a severe spasm in addition to her underlying coronary disease and the LAD causing her EKG changes, which normalized without any intervention. The patient will be continued on aggressive medical therapy. The patient will be admitted to CCU on IV nitroglycerin and IV heparin, will be started on aspirin, statin, maximal dose of atorvastatin. At the end of the procedure the patient is stable hemodynamically without any symptoms and normalization of the EKG changes. JOB# [id number] BIANKA/DARIEN MELGAR
[2018-12-02] MEDS ORDERED: NACL 0.9% 1000 ML 1,000 ML IV SCH (20:00)
[2018-12-02 20:10] LABS: Hematocrit 40.5 % (30.3-42.9); Hemoglobin 13.5 gm/dl (10.1-14.3)
[2018-12-02 20:24] LABS: INR 1.07 (0.87-1.13)
--- NOTE | 2018-12-02 20:51 | XRay Report ---
XR CHEST 1V AP CLINICAL INDICATION: Female, 38 years of age. chest pain COMPARISON: None. Findings: Frontal view(s) of the chest obtained. Cardiac silhouette is within normal limits. No gr oss focal consolidation or effusion. No gross pneumothorax. IMPRESSION: No grossly acute findings. This document is electronically signed by Cyrus Puga DO., December 02 2018 08:49:50 PM ET
[2018-12-02 21:03] LABS: Creatine Kinase MB 72.1 ng/mL (0.0-4.0)
[2018-12-02 21:21] LABS: Partial Thromboplastin Time TNR Sec. (24.2-36.6)
[2018-12-02] MEDS: DILAUDID IV PRN (22:01)
[2018-12-02] MEDS: FEOSOL PO SCH (22:01)
[2018-12-02 23:48] LABS: Creatine Kinase MB 79.7 ng/mL (0.0-4.0)
--- NOTE | 2018-12-03 02:34 | Consultation ---
CARDIOLOGY CONSULTATION HISTORY OF PRESENT ILLNESS: A 38-year-old female who presented to the Emergency Room with acute onset of chest pain around 3 to 3.30 p.m. today. While she was taking shower, the pain is very severe, anterior retrosternal, associated with shortness of breath and radiating to the left arm. She called the paramedics and EKG was performed by paramedics, which showed sinus rhythm with narrow QRS and ST elevations in the lateral precordial leads consistent with acute anterolateral myocardial infarction. Hence, she was brought to the Emergency Room. Repeat EKG showed sinus rhythm with a mildly prolonged QRS duration and ST elevations in the precordial leads consistent with anterolateral myocardial infarction. The patient's pain is still persistent, but much better than before. Her blood pressure is 132/86. The patient is alert, oriented x 3. PAST MEDICAL HISTORY: The patient denies any previous cardiac history. No history of hypertension or diabetes mellitus. Delivered a baby 4-5 months ago. She has history of 4 C-sections. Otherwise, no significant past medical history. SOCIAL HISTORY: Does not smoke or use alcohol or use drugs. REVIEW OF SYSTEMS: Being well up to this afternoon when she started having severe anterior chest pain. She never had chest pain before. No previous cardiac history. No history of hypertension or diabetes or pulmonary problems. Only medication she takes is vitamin. No leg swelling. No orthopnea, no PND. Denied any urinary symptoms. No fever, no chills. PHYSICAL EXAMINATION: GENERAL: The patient is complaining of chest pain, but otherwise comfortable. HEENT: Conjunctivae pink. Sclerae anicteric. NECK: Supple. Difficult to evaluate JVD. HEART: Regular, probably S4, no S3, no significant murmurs. LUNGS: Clear. ABDOMEN: Benign. EXTREMITIES: Without edema. NEUROLOGIC: Alert and oriented x 3. FINAL IMPRESSION: Acute onset of chest pain with EKG changes suggestive of acute anterolateral myocardial infarction. The patient is having persistent chest pain and EKG changes. Considering this, the patient was given IV heparin bolus 5000 units along with starting on IV nitro and taken to the catheterization laboratory on an emergency basis. No family available. Findings were explained to the patient and explained the procedure and diagnosis of myocardial infarction, explained the emergency nature of the procedure. She understands. She is willing to proceed with cardiac catheterization and intervention as indicated. JOB# [id number] BIANKA/DARIEN
[2018-12-03 04:27] LABS: Basophils % (Auto) 0.5 % (0.0-1.8); Eosinophils % (Auto) 0.1 % (0.0-4.3); Hematocrit 39.9 % (30.3-42.9); Hemoglobin 13.7 gm/dl (10.1-14.3); Lymphocytes % (Auto) 12.1 % (13.4-35.0); Mean Corpuscular HGB Conc 34 % (30-34); Mean Corpuscular Volume 94 fl (79-97); Monocytes # (Auto) 0.3 K/mm3 (0.0-0.8); Monocytes % (Auto) 4.4 % (0.0-7.3); Platelet Count 291 K/mm3 (140-440); Red Blood Count 4.25 M/mm3 (3.65-5.03); Red Cell Distribution Width 12.4 % (13.2-15.2)
[2018-12-03 04:43] LABS: Creatine Kinase MB 83.6 ng/mL (0.0-4.0)
[2018-12-03 04:45] LABS: BUN/Creatinine Ratio 16; Blood Urea Nitrogen 8 mg/dL (7-17); Calcium 9.4 mg/dL (8.4-10.2); Hemolysis Index 3
[2018-12-03 08:27] LABS: Creatine Kinase MB 70.6 ng/mL (0.0-4.0)
[2018-12-03] MEDS: IMDUR PO SCH (11:29)
[2018-12-03] MEDS: FEOSOL PO SCH ×2 (11:30→22:49)
[2018-12-03] MEDS: BABY ASPIRIN PO SCH (11:30)
[2018-12-03] MEDS: BRILINTA PO SCH ×3 (11:31→22:50)
--- NOTE | 2018-12-03 11:39 | Progress Note ---
Assessment and Plan Assessment and plan: ST elevation ME. The patient was found to have acute anterior lateral myocardial infarction consistent with ST elevation ME. Angiogram revealed patent arteries but moderate to severe diffuse disease in the mid and distal LAD on the intravascular ultrasound. However HUANG 3 flow in all the vessels. C ardiology felt patient probably had severe spasm in addition to her underlying coronary disease in the LAD causing the EKG changes which normalized without any intervention. Continue aggressive medical therapy. Patient currently with IV nitroglycerin and IV heparin in ICU. Continue aspirin, brilinta and atorvastatin. Obesity. Weight loss counseling, diet and exercise. DVT prophylaxis. Add Lovenox daily History Interval history: 38-year-old female with obesity presented to the emergency department with STEMI and taken emergently to the superintendent geophysical laboratory. The patient was found to have acute anterior lateral myocardial infarction consistent with ST elevation ME. Angiogram revealed patent arteries but moderate to severe diffuse disease in the mid and distal LAD on the intravascular ultrasound. However HUANG 3 flow in all the vessels. Cardiology felt patient probably had severe spasm in addition to her underlying coronary disease in the LAD causing the EKG changes which normalized without any intervention. Hospitalist Physical - Constitutional Vitals: Temp Pulse Resp BP Pulse Ox 98.3 F 85 14 140/85 98 12/02/18 17:27 12/03/18 08:51 12/03/18 08:51 12/03/18 08:51 12/03/18 09:36 General appearance: Present: no acute distress - EENT Eyes: Present: PERRL, EOM intact ENT: hearing intact, clear oral mucosa, dentition normal - Neck Neck: Present: supple, normal ROM - Respiratory Respiratory effort: normal Respiratory: bilateral: CTA - Cardiovascular Rhythm: regular Heart Sounds: Present: S1 & S2. Absent: gallop, rub - Extremities Extremities: no ischemia, No edema, Full ROM - Abdominal General gastrointestinal: soft, non-tender, non-distended, normal bowel sounds - Integumentary Integumentary: Present: clear, warm, dry - Neurologic Neurologic: CNII-XII intact, moves all extremities Results - Labs CBC & Chem 7: 12/03/18 03:57 12/03/18 03:57 Labs: Laboratory Last Values WBC 7.9 K/mm3 (4.5-11.0) 12/03/18 03:57 RBC 4.25 M/mm3 (3.65-5.03) 12/03/18 03:57 Hgb 13.7 gm/dl (10.1-14.3) 12/03/18 03:57 Hct 39.9 % (30.3-42.9) 12/03/18 03:57 MCV 94 fl (79-97) 12/03/18 03:57 MCH 32 pg (28-32) 12/03/18 03:57 MCHC 34 % (30-34) 12/03/18 03:57 RDW 12.4 % (13.2-15.2) L 12/03/18 03:57 Plt Count 291 K/mm3 (140-440) 12/03/18 03:57 Lymph % (Auto) 12.1 % (13.4-35.0) L 12/03/18 03:57 [place] % (Auto) 4.4 % (0.0-7.3) 12/03/18 03:57 Eos % (Auto) 0.1 % (0.0-4.3) 12/03/18 03:57 Baso % (Auto) 0.5 % (0.0-1.8) 12/03/18 03:57 Lymph # 1.0 K/mm3 (1.2-5.4) L 12/03/18 03:57 [place] # 0.3 K/mm3 (0.0-0.8) 12/03/18 03:57 Eos # 0.0 K/mm3 (0.0-0.4) 12/03/18 03:57 Baso # 0.0 K/mm3 (0.0-0.1) 12/03/18 03:57 Seg Neutrophils % 82.9 % (40.0-70.0) H 12/03/18 03:57 Seg Neutrophils # 6.6 K/mm3 (1.8-7.7) 12/03/18 03:57 PT 14.6 Sec. (12.2-14.9) 12/02/18 19:52 INR 1.07 (0.87-1.13) 12/02/18 19:52 APTT TNR 12/02/18 19:52 Sodium 136 mmol/L (137-145) L 12/03/18 03:57 Potassium 4.2 mmol/L (3.6-5.0) 12/03/18 03:57 Chloride 100.7 mmol/L (98-107) 12/03/18 03:57 Carbon Dioxide 25 mmol/L (22-30) 12/03/18 03:57 Anion Gap 15 mmol/L 12/03/18 03:57 BUN 8 mg/dL (7-17) 12/03/18 03:57 Creatinine 0.5 mg/dL (0.7-1.2) L 12/03/18 03:57 Estimated GFR > 60 ml/min 12/03/18 03:57 BUN/Creatinine Ratio 16 % 12/03/18 03:57 Glucose 118 mg/dL (65-100) H 12/03/18 03:57 Calcium 9.4 mg/dL (8.4-10.2) 12/03/18 03:57 Total Creatine Kinase 1139 units/L (30-135) H 12/03/18 07:55 CK-MB (CK-2) 70.6 ng/mL (0.0-4.0) H 12/03/18 07:55 CK-MB (CK-2) Rel Index 6.1 (0-4) H 12/03/18 07:55 Troponin T 2.590 ng/mL (0.00-0.029) H* D 12/03/18 03:57 Triglycerides 70 mg/dL (2-149) 12/02/18 17:17 Cholesterol 231 mg/dL (50-199) H 12/02/18 17:17 LDL Cholesterol Direct 154 mg/dL (50-130) H 12/02/18 17:17 HDL Cholesterol 82 mg/dL (40-59) H 12/02/18 17:17 Cholesterol/HDL Ratio 2.81 % 12/02/18 17:17 Blood Type O POSITIVE 12/02/18 17:17 Antibody Screen Negative 12/02/18 17:17 Active Medications - Current Medications Current Medications: Generic Name Dose Route Start Last Admin Trade Name Freq PRN Reason Stop Dose Admin Aspirin 81 mg 12/03/18 10:00 Baby Aspirin PO QDAY [facility] Atorvastatin Calcium 80 mg 12/02/18 22:00 12/02/18 22:01 Lipitor PO 80 mg QHS PAULINO Administration Diltiazem HCl 30 mg 12/03/18 12:00 Cardizem PO Q6HR [facility] Docusate Sodium 100 mg 12/02/18 19:00 Colace PO BID PRN Constipation Ferrous Sulfate 325 mg 12/02/18 22:00 12/02/18 22:01 Feosol PO 325 mg BID [facility] Administration Hydromorphone HCl 0.5 mg 12/02/18 19:13 12/02/18 22:01 Dilaudid IV 0.5 mg Q3H PRN Administration Pain , Severe (7-10) Nitroglycerin/Dextrose 50 mg in 250 mls @ 3 mls/hr 12/02/18 18:00 12/02/18 19:19 Tridil Drip 50mg/250ml IV 1 mls TITR PAULINO Administration Protocol 10 MCG/MIN Isosorbide Mononitrate 30 mg 12/03/18 12:00 Imdur PO QDAY [facility] Oxycodone/Acetaminophen 1 tab 12/02/18 17:51 Percocet 5/325 PO Q4H PRN Pain, Moderate (4-6) Sodium Chloride 10 ml 12/02/18 22:00 Sodium Chloride Flush Syringe 10 Ml IV BID [facility] Sodium Chloride 10 ml 12/02/18 17:48 Sodium Chloride Flush Syringe 10 Ml IV PRN PRN LINE FLUSH Ticagrelor 90 mg 12/02/18 22:00 Brilinta PO BID [facility] Tramadol HCl 50 mg 12/02/18 19:13 Ultram PO Q4H PRN Pain, Mild (1-3)
--- NOTE | 2018-12-03 11:49 | Progress Note ---
Assessment and Plan Echo reveiwed - EF 40-45% with apical hypokinesis. Initiate low dose lisinopril. Will also initiate nitrates and CCB in lieu of BB in setting of coronary vasospasm. Cont ASA, statin, brilinta. Currently stable cardiac status. Encourage increased activity/ambulation. Pt may tx to telemetry from CCU and likely d/c home in AM. The patient has been seen in conjunction with Dr. Connolly who agrees with the assessment and plan of care. - Patient Problems (1) STEMI (ST elevation myocardial infarction) Current Visit: Yes Status: Acute (2) CAD (coronary artery disease) Current Visit: Yes Status: Chronic Subjective Date of service: 12/03/18 Principal diagnosis: stemi Interval history: pt resting comfortably up in chair, off nitro and heparin gtts. c/o some intermittent upper back pain overnight. no current complaints. VSS. at bedside. Objective Last Vital Signs Temp 98.3 F 12/02/18 17:27 Pulse 74 12/03/18 11:29 Resp 14 12/03/18 08:51 BP 127/77 12/03/18 11:29 Pulse Ox 98 12/03/18 09:36 - Physical Examination General: No Apparent Distress HEENT: Positive: PERRL, Normocephaly, Mucus Membranes Moist Neck: Positive: neck supple, trachea midline Cardiac: Positive: Reg Rate and Rhythm, S1/S2 Lungs: Positive: Decreased Breath Sounds Neuro: Positive: Grossly Intact Abdomen: Positive: Soft. Negative: Tender Skin: Negative: Rash - Labs and Meds Cardiac Enzymes 12/02/18 12/02/18 12/02/18 Range/Units 17:17 19:52 22:57 CK-MB (CK-2) 2.7 72.1 H 79.7 H (0.0-4.0) ng/mL 12/03/18 12/03/18 Range/Units 03:57 07:55 CK-MB (CK-2) 83.6 H 70.6 H (0.0-4.0) ng/mL Coagulation 12/02/18 12/02/18 Range/Units 17:17 19:52 PT 12.6 14.6 (12.2-14.9) Sec. INR 0.89 1.07 (0.87-1.13) APTT 28.6 TNR (24.2-36.6) Sec. Lipids 12/02/18 Range/Units 17:17 Triglycerides 70 (2-149) mg/dL Cholesterol 231 H (50-199) mg/dL HDL Cholesterol 82 H (40-59) mg/dL Cholesterol/HDL Ratio 2.81 % CBC 12/02/18 12/02/18 12/03/18 Range/Units 17:17 19:52 03:57 WBC 5.6 7.9 (4.5-11.0) K/mm3 RBC 4.29 4.25 (3.65-5.03) M/mm3 Hgb 13.7 13.5 13.7 (10.1-14.3) gm/dl Hct 40.6 40.5 39.9 (30.3-42.9) % Plt Count 302 305 291 (140-440) K/mm3 Lymph # 1.8 1.0 L (1.2-5.4) K/mm3 [place] # 0.6 0.3 (0.0-0.8) K/mm3 Eos # 0.1 0.0 (0.0-0.4) K/mm3 Baso # 0.1 0.0 (0.0-0.1) K/mm3 Comprehensive Metabolic Panel 12/02/18 12/03/18 Range/Units 17:17 03:57 Sodium 142 136 L (137-145) mmol/L Potassium 4.0 4.2 (3.6-5.0) mmol/L Chloride 104.7 100.7 (98-107) mmol/L Carbon Dioxide 22 25 (22-30) mmol/L BUN 13 8 (7-17) mg/dL Creatinine 0.6 L 0.5 L (0.7-1.2) mg/dL Glucose 111 H 118 H (65-100) mg/dL Calcium 9.6 9.4 (8.4-10.2) mg/dL - Imaging and Cardiology EKG: report reviewed, image reviewed Echo: report reviewed Cardiac cath: report reviewed - Telemetry EKG Rhythm: Sinus Rhythm
[2018-12-03] MEDS: ULTRAM PO PRN (13:54)
[2018-12-03] MEDS: CARDIZEM PO SCH ×3 (13:54→23:01)
--- NOTE | 2018-12-03 15:00 | Consultation ---
History of Present Illness Consult date: 12/03/18 Requesting physician: STEPH ALONSO History of present illness: PULMONARY/CCM CONSULT NOTE (Full dictation # ) Please see dictated notes for full details Past History Past Medical History: other (Obesity) Past Surgical History: Social history: single. denies: smoking, alcohol abuse, prescription drug abuse Family history: diabetes, hypertension Medications and Allergies Allergies Allergy/AdvReac Type Severity Reaction Status Date / Time No Known Allergies Allergy Verified 10/21/16 18:59 Home Medications Medication Instructions Recorded Confirmed Last Taken Type Ferrous Sulfate [Feosol 325 MG tab] 325 mg PO BID #60 tablet 10/21/16 Unknown Rx Ibuprofen [Motrin 800 MG tab] 800 mg PO Q6H PRN #30 tablet 10/21/16 Unknown Rx oxyCODONE /ACETAMINOPHEN [Percocet 1 - 2 tab PO Q4H PRN #30 tablet 10/21/16 Unknown Rx 5/325 mg] Docusate Sodium [Colace] 100 mg PO BID PRN #60 capsule 10/24/16 Unknown Rx Active Meds: Active Medications Aspirin (Baby Aspirin) 81 mg PO QDAY [facility] Last Admin: 12/03/18 11:30 Dose: 81 mg Documented by: Atorvastatin Calcium (Lipitor) 80 mg PO QHS [facility] Last Admin: 12/02/18 22:01 Dose: 80 mg Documented by: Diltiazem HCl (Cardizem) 30 mg PO Q6HR [facility] Last Admin: 12/03/18 13:54 Dose: 30 mg Documented by: Docusate Sodium (Colace) 100 mg PO BID PRN PRN Reason: Constipation Enoxaparin Sodium (Lovenox) 40 mg SUB-Q QDAY@2200 [facility] Ferrous Sulfate (Feosol) 325 mg PO BID [facility] Last Admin: 12/03/18 11:30 Dose: 325 mg Documented by: Hydromorphone HCl (Dilaudid) 0.5 mg IV Q3H PRN PRN Reason: Pain , Severe (7-10) Last Admin: 12/02/18 22:01 Dose: 0.5 mg Documented by: Isosorbide Mononitrate (Imdur) 30 mg PO QDAY [facility] Last Admin: 12/03/18 11:29 Dose: 30 mg Documented by: Oxycodone/Acetaminophen (Percocet 5/325) 1 tab PO Q4H PRN PRN Reason: Pain, Moderate (4-6) Sodium Chloride (Sodium Chloride Flush Syringe 10 Ml) 10 ml IV BID PAULINO Sodium Chloride (Sodium Chloride Flush Syringe 10 Ml) 10 ml IV PRN PRN PRN Reason: LINE FLUSH Ticagrelor (Brilinta) 90 mg PO BID PAULINO Last Admin: 12/03/18 11:31 Dose: 90 mg Documented by: Tramadol HCl (Ultram) 50 mg PO Q4H PRN PRN Reason: Pain, Mild (1-3) Last Admin: 12/03/18 13:54 Dose: 50 mg Documented by: Physical Examination Vital signs: Vital Signs Temp Pulse Resp BP Pulse Ox 98.3 F 86 20 136/86 100 12/02/18 17:27 12/02/18 17:27 12/02/18 17:27 12/02/18 17:27 12/02/18 17:27 Results - Laboratory Findings CBC and BMP: 12/03/18 03:57 12/03/18 03:57 PT/INR, D-dimer PT 14.6 Sec. (12.2-14.9) 12/02/18 19:52 INR 1.07 (0.87-1.13) 12/02/18 19:52 Abnormal lab findings: Abnormal Labs 12/02/18 12/02/18 12/02/18 17:17 17:17 19:52 RDW 12.4 L Lymph % (Auto) [place] % (Auto) 11.4 H Lymph # Seg Neutrophils % Sodium Creatinine 0.6 L Glucose 111 H Total Creatine Kinase 140 H 1260 H CK-MB (CK-2) 72.1 H CK-MB (CK-2) Rel Index 5.7 H Troponin T 0.036 H 2.910 H* D Cholesterol 231 H LDL Cholesterol Direct 154 H HDL Cholesterol 82 H 12/02/18 12/03/18 12/03/18 22:57 03:57 03:57 RDW 12.4 L Lymph % (Auto) 12.1 L [place] % (Auto) Lymph # 1.0 L Seg Neutrophils % 82.9 H Sodium 136 L Creatinine 0.5 L Glucose 118 H Total Creatine Kinase 1349 H 1282 H CK-MB (CK-2) 79.7 H 83.6 H CK-MB (CK-2) Rel Index 5.9 H 6.5 H Troponin T 2.050 H* D 2.590 H* D Cholesterol LDL Cholesterol Direct HDL Cholesterol 12/03/18 07:55 RDW Lymph % (Auto) [place] % (Auto) Lymph # Seg Neutrophils % Sodium Creatinine Glucose Total Creatine Kinase 1139 H CK-MB (CK-2) 70.6 H CK-MB (CK-2) Rel Index 6.1 H Troponin T Cholesterol LDL Cholesterol Direct HDL Cholesterol
[2018-12-03 15:10] LABS: Creatine Kinase MB 44.6 ng/mL (0.0-4.0)
[2018-12-03] MEDS: ZOFRAN IV PRN (17:10)
[2018-12-03] MEDS: PERCOCET 5/325 PO PRN (18:37)
[2018-12-03] MEDS: SODIUM CHLORIDE FLUSH SYRINGE 10 ML IV SCH ×3 (19:56→23:01)
[2018-12-03] MEDS: LOVENOX SUB-Q SCH (22:51)
[2018-12-04 05:34] LABS: Basophils % (Auto) 0.5 % (0.0-1.8); Eosinophils # (Auto) 0.1 K/mm3 (0.0-0.4); Eosinophils % (Auto) 0.8 % (0.0-4.3); Hematocrit 39.5 % (30.3-42.9); Hemoglobin 13.3 gm/dl (10.1-14.3); Lymphocytes # (Auto) 1.5 K/mm3 (1.2-5.4); Mean Corpuscular HGB Conc 34 % (30-34); Mean Corpuscular Volume 95 fl (79-97); Monocytes # (Auto) 0.7 K/mm3 (0.0-0.8); Monocytes % (Auto) 10.8 % (0.0-7.3); Platelet Count 281 K/mm3 (140-440); Red Blood Count 4.18 M/mm3 (3.65-5.03); Red Cell Distribution Width 12.7 % (13.2-15.2)
[2018-12-04 05:59] LABS: BUN/Creatinine Ratio 18; Blood Urea Nitrogen 11 mg/dL (7-17); Calcium 9.2 mg/dL (8.4-10.2); Hemolysis Index 6
[2018-12-04] MEDS: PERCOCET 5/325 PO PRN ×2 (06:03→20:45)
[2018-12-04] MEDS: CARDIZEM PO SCH ×4 (06:04→23:44)
[2018-12-04] MEDS: FEOSOL PO SCH ×2 (10:14→21:39)
[2018-12-04] MEDS: BRILINTA PO SCH ×2 (10:14→21:38)
[2018-12-04] MEDS: IMDUR PO SCH (10:14)
[2018-12-04] MEDS: BABY ASPIRIN PO SCH (10:14)
[2018-12-04] MEDS: SODIUM CHLORIDE FLUSH SYRINGE 10 ML IV SCH ×2 (10:15→21:47)
[2018-12-04] MEDS: DILAUDID IV PRN (13:44)
[2018-12-04] MEDS: ZOFRAN IV PRN ×2 (13:44→20:34)
--- NOTE | 2018-12-04 14:07 | Progress Note ---
Assessment and Plan STEMI With suspected coronary vasospasm Pt c/o headache. D/c Imdur. Cont cardizem and intiate low dose lisinopril. Cont asa, statin, brilinta. Plan to d/c home on PRN SL nitro. Mild LV dysfunction EF 40-45% with apical hypokinesis Cont CCB in lieu of BB in setting of suspected coronary vasospasm. Initiate lisinopril. Nonobstructive CAD Currently stable cardiac status. Pt denies any current cardiac complaints. Likely d/c home in AM pending BPs tolerate changes in regimen. The patient has been seen in conjunction with Dr. Cummings who agrees with the assessment and plan of care. Subjective Date of service: 12/04/18 Principal diagnosis: stemi Interval history: pt resting comfortably in bed, no current cardiac complaints. c/o headache and nausea, no vomiting. VSS. at bedside. Objective Last Vital Signs Temp 98.2 F 12/04/18 11:57 Pulse 64 12/04/18 11:57 Resp 20 12/04/18 11:57 BP 91/51 12/04/18 11:57 Pulse Ox 98 12/04/18 11:57 - Physical Examination General: No Apparent Distress HEENT: Positive: PERRL, Normocephaly, Mucus Membranes Moist Neck: Positive: neck supple, trachea midline Cardiac: Positive: Reg Rate and Rhythm, S1/S2 Lungs: Positive: clear to auscultation Neuro: Positive: Grossly Intact Abdomen: Positive: Soft. Negative: Tender Skin: Negative: Rash - Labs and Meds Cardiac Enzymes 12/03/18 Range/Units 14:28 CK-MB (CK-2) 44.6 H (0.0-4.0) ng/mL CBC 12/04/18 Range/Units 05:12 WBC 6.5 (4.5-11.0) K/mm3 RBC 4.18 (3.65-5.03) M/mm3 Hgb 13.3 (10.1-14.3) gm/dl Hct 39.5 (30.3-42.9) % Plt Count 281 (140-440) K/mm3 Lymph # 1.5 (1.2-5.4) K/mm3 [place] # 0.7 (0.0-0.8) K/mm3 Eos # 0.1 (0.0-0.4) K/mm3 Baso # 0.0 (0.0-0.1) K/mm3 Comprehensive Metabolic Panel 12/04/18 Range/Units 05:12 Sodium 137 (137-145) mmol/L Potassium 4.1 (3.6-5.0) mmol/L Chloride 100.7 (98-107) mmol/L Carbon Dioxide 24 (22-30) mmol/L BUN 11 (7-17) mg/dL Creatinine 0.6 L (0.7-1.2) mg/dL Glucose 94 (65-100) mg/dL Calcium 9.2 (8.4-10.2) mg/dL - Imaging and Cardiology EKG: report reviewed, image reviewed Echo: report reviewed (EF 40-45% with apical hypokinesis.) Cardiac cath: report reviewed - Telemetry EKG Rhythm: Sinus Rhythm
[2018-12-04] MEDS ORDERED: ZESTRIL PO SCH (15:00)
--- NOTE | 2018-12-04 15:08 | Progress Note ---
Assessment and Plan Assessment and plan: --ST elevation [place]. The patient was found to have acute anterior lateral myocardial infarction consistent with ST elevation [place]. Angiogram revealed patent arteries but moderate to severe diffuse disease in the mid and distal LAD on the intravascular ultrasound. However HUANG 3 flow in all the vessels. Cardiology felt patient probably had severe spasm in addition to her underlying coronary disease in the LAD causing the EKG changes which normalized without any intervention. Continue aggressive medical therapy. Continue aspirin, brilinta and atorvastatin. --Mild hypertension/dizziness; Cardiology adjusted medications, closely monitor Obesity. Weight loss counseling, diet and exercise. DVT prophylaxis, Lovenox daily Increase ambulation as tolerated Possible discharge home tomorrow if cleared by cardiology and stable Plan of care reviewed with the patient and the family member at the bedside History Interval history: Patient seen and examined medical records reviewed Patient has no new complaints Underwent left heart catheterization . Patent coronary arteries Coronary spasm, medical management Alert awake oriented 3 Vital signs noted Hospitalist Physical - Constitutional Vitals: Temp Pulse Resp BP Pulse Ox 98.2 F 64 20 91/51 98 12/04/18 11:57 12/04/18 11:57 12/04/18 11:57 12/04/18 11:57 12/04/18 11:57 General appearance: Present: no acute distress, well-nourished, obese - EENT Eyes: Present: PERRL, EOM intact - Neck Neck: Present: supple, normal ROM - Respiratory Respiratory effort: normal Respiratory: bilateral: diminished, negative: rales, rhonchi, wheezing - Cardiovascular Rhythm: regular Heart Sounds: Present: S1 & S2 - Extremities Extremities: no ischemia, No edema - Abdominal General gastrointestinal: soft, non-tender, non-distended, normal bowel sounds - Integumentary Integumentary: Present: clear, warm - Psychiatric Psychiatric: appropriate mood/affect, cooperative - Neurologic Neurologic: CNII-XII intact, moves all extremities Results - Labs CBC & Chem 7: 12/04/18 05:12 12/04/18 05:12 Labs: Laboratory Last Values WBC 6.5 K/mm3 (4.5-11.0) 12/04/18 05:12 RBC 4.18 M/mm3 (3.65-5.03) 12/04/18 05:12 Hgb 13.3 gm/dl (10.1-14.3) 12/04/18 05:12 Hct 39.5 % (30.3-42.9) 12/04/18 05:12 MCV 95 fl (79-97) 12/04/18 05:12 MCH 32 pg (28-32) 12/04/18 05:12 MCHC 34 % (30-34) 12/04/18 05:12 RDW 12.7 % (13.2-15.2) L 12/04/18 05:12 Plt Count 281 K/mm3 (140-440) 12/04/18 05:12 Lymph % (Auto) 23.0 % (13.4-35.0) 12/04/18 05:12 [place] % (Auto) 10.8 % (0.0-7.3) H 12/04/18 05:12 Eos % (Auto) 0.8 % (0.0-4.3) 12/04/18 05:12 Baso % (Auto) 0.5 % (0.0-1.8) 12/04/18 05:12 Lymph # 1.5 K/mm3 (1.2-5.4) 12/04/18 05:12 [place] # 0.7 K/mm3 (0.0-0.8) 12/04/18 05:12 Eos # 0.1 K/mm3 (0.0-0.4) 12/04/18 05:12 Baso # 0.0 K/mm3 (0.0-0.1) 12/04/18 05:12 Seg Neutrophils % 64.9 % (40.0-70.0) 12/04/18 05:12 Seg Neutrophils # 4.2 K/mm3 (1.8-7.7) 12/04/18 05:12 PT 14.6 Sec. (12.2-14.9) 12/02/18 19:52 INR 1.07 (0.87-1.13) 12/02/18 19:52 APTT TNR 12/02/18 19:52 Activated Clotting Time 301 (74-137) H 12/02/18 18:28 Sodium 137 mmol/L (137-145) 12/04/18 05:12 Potassium 4.1 mmol/L (3.6-5.0) 12/04/18 05:12 Chloride 100.7 mmol/L (98-107) 12/04/18 05:12 Carbon Dioxide 24 mmol/L (22-30) 12/04/18 05:12 Anion Gap 16 mmol/L 12/04/18 05:12 BUN 11 mg/dL (7-17) 12/04/18 05:12 Creatinine 0.6 mg/dL (0.7-1.2) L 12/04/18 05:12 Estimated GFR > 60 ml/min 12/04/18 05:12 BUN/Creatinine Ratio 18 % 12/04/18 05:12 Glucose 94 mg/dL (65-100) 12/04/18 05:12 Calcium 9.2 mg/dL (8.4-10.2) 12/04/18 05:12 Total Creatine Kinase 848 units/L (30-135) H 12/03/18 14:28 CK-MB (CK-2) 44.6 ng/mL (0.0-4.0) H 12/03/18 14:28 CK-MB (CK-2) Rel Index 5.2 (0-4) H 12/03/18 14:28 Troponin T 2.590 ng/mL (0.00-0.029) H* D 12/03/18 03:57 Triglycerides 70 mg/dL (2-149) 12/02/18 17:17 Cholesterol 231 mg/dL (50-199) H 12/02/18 17:17 LDL Cholesterol Direct 154 mg/dL (50-130) H 12/02/18 17:17 HDL Cholesterol 82 mg/dL (40-59) H 12/02/18 17:17 Cholesterol/HDL Ratio 2.81 % 12/02/18 17:17 Blood Type O POSITIVE 12/02/18 17:17 Antibody Screen Negative 12/02/18 17:17 Active Medications - Current Medications Current Medications: Generic Name Dose Route Start Last Admin Trade Name Freq PRN Reason Stop Dose Admin Aspirin 81 mg 12/03/18 10:00 12/04/18 10:14 Baby Aspirin PO 81 mg QDAY PAULINO Administration Atorvastatin Calcium 80 mg 12/02/18 22:00 12/03/18 22:49 Lipitor PO 80 mg QHS PAULINO Administration Diltiazem HCl 30 mg 12/03/18 12:00 12/04/18 06:04 Cardizem PO 30 mg Q6HR PAULINO Administration Docusate Sodium 100 mg 12/02/18 19:00 Colace PO BID PRN Constipation Enoxaparin Sodium 40 mg 12/03/18 22:00 12/03/18 22:51 Lovenox SUB-Q 40 mg QDAY@2200 PAULINO Administration Ferrous Sulfate 325 mg 12/02/18 22:00 12/04/18 10:14 Feosol PO 325 mg BID PAULINO Administration Hydromorphone HCl 0.5 mg 12/02/18 19:13 12/04/18 13:44 Dilaudid IV 0.5 mg Q3H PRN Administration Pain , Severe (7-10) Lisinopril 5 mg 12/04/18 15:00 Zestril PO QDAY PAULINO Ondansetron HCl 4 mg 12/03/18 16:56 12/04/18 13:44 Zofran IV 4 mg Q6H PRN Administration Nausea And Vomiting Oxycodone/Acetaminophen 1 tab 12/02/18 17:51 12/04/18 06:03 Percocet 5/325 PO 1 tab Q4H PRN Administration Pain, Moderate (4-6) Sodium Chloride 10 ml 12/02/18 22:00 12/04/18 10:15 Sodium Chloride Flush Syringe 10 Ml IV 10 ml BID PAULINO Administration Sodium Chloride 10 ml 12/02/18 17:48 Sodium Chloride Flush Syringe 10 Ml IV PRN PRN LINE FLUSH Ticagrelor 90 mg 12/02/18 22:00 12/04/18 10:14 Brilinta PO 90 mg BID PAULINO Administration Tramadol HCl 50 mg 12/02/18 19:13 12/03/18 13:54 Ultram PO 50 mg Q4H PRN Administration Pain, Mild (1-3)
[2018-12-04] MEDS ORDERED: REGLAN IV PRN (20:27)
--- NOTE | 2018-12-04 20:27 | Progress Note ---
Assessment and Plan Patient resting on room air.O2 saturation 98%. No complaint of chest pain, shortness of breath or cough. - Patient Problems (1) STEMI (ST elevation myocardial infarction) Current Visit: Yes Status: Acute Plan to address problem: Management as per cardiology. (2) CAD (coronary artery disease) Current Visit: Yes Status: Chronic Plan to address problem: Management as per cardiology. (3) Chest pain Current Visit: Yes Status: Acute Plan to address problem: No complaint of chest pain now. (4) Obesity Current Visit: No Status: Acute Qualifiers: Body mass index: BMI 32.0-32.9 Plan to address problem: Recommend tow diet and exercise. Subjective Date of service: 12/04/18 Principal diagnosis: stemi Interval history: Patient resting on room air.O2 saturation 98%. No complaint of chest pain, shortness of breath or cough. Objective Vital Signs - 12hr 12/04/18 12/04/18 12/04/18 09:00 10:00 11:57 Temperature 98.2 F Pulse Rate 86 64 Respiratory 20 Rate Blood Pressure 91/51 O2 Sat by Pulse 98 98 Oximetry 12/04/18 16:08 Temperature 98.6 F Pulse Rate 68 Respiratory 18 Rate Blood Pressure 112/72 O2 Sat by Pulse 97 Oximetry Constitutional: no acute distress, alert Eyes: non-icteric Neck: supple, no lymphadenopathy Ascultation: Bilateral: diminished breath sounds Cardiovascular: regular rate and rhythm Gastrointestinal: normoactive bowel sounds, soft, non-tender Integumentary: normal Extremities: no cyanosis, no edema Neurologic: normal mental status, non-focal exam, pupils equal and round, CN II- XII normal Psychiatric: mood appropriate CBC and BMP: 12/04/18 05:12 12/04/18 05:12 ABG, PT/INR, D-dimer: PT/INR, D-dimer PT 14.6 Sec. (12.2-14.9) 12/02/18 19:52 INR 1.07 (0.87-1.13) 12/02/18 19:52 Abnormal lab findings: Abnormal Labs 12/02/18 12/02/18 12/02/18 17:17 17:17 18:28 RDW 12.4 L Lymph % (Auto) [place] % (Auto) 11.4 H Lymph # Seg Neutrophils % Activated Clotting Time 301 H Sodium Creatinine 0.6 L Glucose 111 H Total Creatine Kinase 140 H CK-MB (CK-2) CK-MB (CK-2) Rel Index Troponin T 0.036 H Cholesterol 231 H LDL Cholesterol Direct 154 H HDL Cholesterol 82 H 12/02/18 12/02/18 12/03/18 19:52 22:57 03:57 RDW 12.4 L Lymph % (Auto) 12.1 L [place] % (Auto) Lymph # 1.0 L Seg Neutrophils % 82.9 H Activated Clotting Time Sodium Creatinine Glucose Total Creatine Kinase 1260 H 1349 H CK-MB (CK-2) 72.1 H 79.7 H CK-MB (CK-2) Rel Index 5.7 H 5.9 H Troponin T 2.910 H* D 2.050 H* D Cholesterol LDL Cholesterol Direct HDL Cholesterol 12/03/18 12/03/18 12/03/18 03:57 07:55 14:28 RDW Lymph % (Auto) [place] % (Auto) Lymph # Seg Neutrophils % Activated Clotting Time Sodium 136 L Creatinine 0.5 L Glucose 118 H Total Creatine Kinase 1282 H 1139 H 848 H CK-MB (CK-2) 83.6 H 70.6 H 44.6 H CK-MB (CK-2) Rel Index 6.5 H 6.1 H 5.2 H Troponin T 2.590 H* D Cholesterol LDL Cholesterol Direct HDL Cholesterol 12/04/18 12/04/18 05:12 05:12 RDW 12.7 L Lymph % (Auto) [place] % (Auto) 10.8 H Lymph # Seg Neutrophils % Activated Clotting Time Sodium Creatinine 0.6 L Glucose Total Creatine Kinase CK-MB (CK-2) CK-MB (CK-2) Rel Index Troponin T Cholesterol LDL Cholesterol Direct HDL Cholesterol Chest x-ray: report reviewed (Reported normal.), image reviewed
[2018-12-04] MEDS ORDERED: PHENERGAN PR PRN (20:51)
[2018-12-04] MEDS ORDERED: NACL 0.9% 1000 ML 1,000 ML IV SCH (21:00)
[2018-12-04] MEDS: LOVENOX SUB-Q SCH (21:39)
[2018-12-04] MEDS: ULTRAM PO PRN (23:44)
[2018-12-05] MEDS: CARDIZEM PO SCH ×2 (05:54→15:44)
[2018-12-05] MEDS: ULTRAM PO PRN (05:56)
[2018-12-05] MEDS ORDERED: ZESTRIL PO SCH (10:00)
[2018-12-05] MEDS: PERCOCET 5/325 PO PRN (10:35)
[2018-12-05] MEDS: BRILINTA PO SCH (10:36)
[2018-12-05] MEDS: BABY ASPIRIN PO SCH (10:36)
[2018-12-05] MEDS: FEOSOL PO SCH (10:36)
[2018-12-05] MEDS: SODIUM CHLORIDE FLUSH SYRINGE 10 ML IV SCH (10:41)
--- NOTE | 2018-12-05 12:17 | Discharge Summary ---
Providers - Providers Date of Admission: 12/02/18 17:48 Date of discharge: 12/05/18 Attending physician: SUSANNE OLSON 12/02/18 Consult to Cardiac Rehabilitation [CONS] Routine Reason For Exam: post pci 12/02/18 17:29 Consult to Physician [CONS] Stat Comment: Consulting Provider: LUCINDA PECK Physician Instructions: Reason For Exam: STEMI 12/03/18 14:16 Consult to Physician [CONS] Routine Comment: Consulting Provider: JAMISON MOSQUEDA Physician Instructions: Reason For Exam: critical care Primary care physician: [facility], Hospitalization Reason for admission: Chest pain/acute ST elevation ID Condition: Stable Pertinent studies: Chest x-ray Heart catheterization :Patent arteries probably severe spasm Echocardiogram; EF 45-50% Lower extremity venous Doppler; negative for DVT Hospital course: 38-year-old female with obesity presented to the emergency department with STEMI 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 The patient was found to have acute anterior lateral myocardial infarction consistent with ST elevation ID. Angiogram revealed patent arteries but moderate to severe diffuse disease in the mid and distal LAD on the intravascular ultrasound. However HUANG 3 flow in all the vessels. Cardiology felt patient probably had severe spasm in addition to her underlying coronary disease in the LAD causing the EKG changes which normalized without any intervention. Patient was symptomatically managed medications optimized Today patient is comfortable in no new complaints vital signs stable cleared by cardiology For discharge and follow-up with them in the office for further evaluation and management Patient is hemodynamically and clinically stable at discharge Discharge diagnosis and management; --ST elevation [place]. The patient was found to have acute anterior lateral myocardial infarction consistent with ST elevation [place]. Angiogram revealed patent arteries but moderate to severe diffuse disease in the mid and distal LAD on the intravascular ultrasound. However HUANG 3 flow in all the vessels. Cardiology felt patient probably had severe spasm in addition to her underlying coronary disease in the LAD causing the EKG changes which normalized without any intervention. Continue aggressive medical therapy. Continue aspirin, brilinta and atorvastatin. --Mild hypertension/dizziness; Cardiology adjusted medications, closely monitor --Obesity. Weight loss counseling, diet and exercise. DVT prophylaxis, Lovenox daily Increase ambulation as tolerated Cleared by cardiology for discharge Disposition: DC-01 TO HOME OR SELFCARE Time spent for discharge: 32 min Core Measure Documentation - Palliative Care Palliative Care/ Comfort Measures: Not Applicable - Core Measures Any of the following diagnoses?: acute ID - Acute ID Discharge Requirements Aspirin at discharge: Yes ZOILA/ARB for LVSD if EF <40%: Yes Beta sarah at discharge: Yes Statin for LDL = or >100 mg/dl on DC: Yes Exam - Constitutional Vitals: Temp Pulse Resp BP Pulse Ox 98.0 F 63 18 107/63 96 12/05/18 08:06 12/05/18 10:36 12/05/18 10:35 12/05/18 10:36 12/05/18 08:06 General appearance: Present: no acute distress, well-nourished - EENT Eyes: Present: PERRL, EOM intact - Neck Neck: Present: supple, normal ROM - Respiratory Respiratory effort: normal Respiratory: bilateral: diminished, negative: rales, rhonchi, wheezing - Cardiovascular Rhythm: regular Heart Sounds: Present: S1 & S2 - Extremities Extremities: no ischemia, No edema - Abdominal General gastrointestinal: Present: soft, non-tender, non-distended, normal bowel sounds - Integumentary Integumentary: Present: clear, warm - Musculoskeletal Musculoskeletal: strength equal bilaterally - Psychiatric Psychiatric: appropriate mood/affect, cooperative Plan Activity: advance as tolerated Diet: other (cardiac diet) Additional Instructions: If you have chest pain or shortness of breath, contact M.D. or go to emergency room. Patient is advised not to breast-feed while taking the cardiac medications vice by a supervisor photocomposition, Patient verbalized understanding Follow up with: LUCINDA PECK MD [Staff Physician] - 7 Days (Follow up in our [place] office with Dr. Peck on 12/11/2018 @ 12:00PM. ) [place] VINNIE MONGE MD [Primary Care Provider] - 7 Days Prescriptions: Aspirin [Aspirin BABY CHEW TAB] 81 mg PO QDAY #30 tab.chew Ticagrelor [Brilinta] 90 mg PO BID #60 tablet dilTIAZem CD [Cardizem Cd] 180 mg PO QDAY #30 cap AtorvaSTATin [Lipitor] 80 mg PO QHS #30 tablet Nitroglycerin 0.4 mg SL Q4HR PRN #30 tab.subl PRN Reason: Chest Pain Lisinopril [Zestril TAB] 5 mg PO QDAY #30 tablet
--- NOTE | 2018-12-05 13:14 | Progress Note ---
Assessment and Plan Patient resting on room air.O2 saturation 98%. No complaint of chest pain, shortness of breath or cough. - Patient Problems (1) STEMI (ST elevation myocardial infarction) Current Visit: Yes Status: Acute Plan to address problem: Management as per cardiology. (2) CAD (coronary artery disease) Current Visit: Yes Status: Chronic Plan to address problem: Management as per cardiology. (3) Chest pain Current Visit: Yes Status: Acute Plan to address problem: No complaint of chest pain now. (4) Obesity Current Visit: No Status: Acute Qualifiers: Body mass index: BMI 32.0-32.9 Plan to address problem: Recommend tow diet and exercise. Subjective Date of service: 12/05/18 Principal diagnosis: stemi Interval history: Patient resting on room air.O2 saturation 98%. No complaint of chest pain, shortness of breath or cough. Objective Vital Signs - 12hr 12/05/18 12/05/18 12/05/18 04:04 08:06 10:35 Temperature 98.2 F 98.0 F Pulse Rate 65 63 Respiratory 12 20 18 Rate Blood Pressure 104/61 107/63 O2 Sat by Pulse 99 96 Oximetry 12/05/18 10:36 Temperature Pulse Rate 63 Respiratory Rate Blood Pressure 107/63 O2 Sat by Pulse Oximetry Constitutional: no acute distress, alert Eyes: non-icteric Neck: supple, no lymphadenopathy Ascultation: Bilateral: diminished breath sounds Cardiovascular: regular rate and rhythm Gastrointestinal: normoactive bowel sounds, soft, non-tender Integumentary: normal Extremities: no cyanosis, no edema Neurologic: normal mental status, non-focal exam, pupils equal and round, CN II- XII normal Psychiatric: mood appropriate CBC and BMP: 12/04/18 05:12 12/04/18 05:12 ABG, PT/INR, D-dimer: PT/INR, D-dimer PT 14.6 Sec. (12.2-14.9) 12/02/18 19:52 INR 1.07 (0.87-1.13) 12/02/18 19:52 Abnormal lab findings: Abnormal Labs 12/02/18 12/02/18 12/02/18 17:17 17:17 18:28 RDW 12.4 L Lymph % (Auto) [place] % (Auto) 11.4 H Lymph # Seg Neutrophils % Activated Clotting Time 301 H Sodium Creatinine 0.6 L Glucose 111 H Total Creatine Kinase 140 H CK-MB (CK-2) CK-MB (CK-2) Rel Index Troponin T 0.036 H Cholesterol 231 H LDL Cholesterol Direct 154 H HDL Cholesterol 82 H 12/02/18 12/02/18 12/03/18 19:52 22:57 03:57 RDW 12.4 L Lymph % (Auto) 12.1 L [place] % (Auto) Lymph # 1.0 L Seg Neutrophils % 82.9 H Activated Clotting Time Sodium Creatinine Glucose Total Creatine Kinase 1260 H 1349 H CK-MB (CK-2) 72.1 H 79.7 H CK-MB (CK-2) Rel Index 5.7 H 5.9 H Troponin T 2.910 H* D 2.050 H* D Cholesterol LDL Cholesterol Direct HDL Cholesterol 12/03/18 12/03/18 12/03/18 03:57 07:55 14:28 RDW Lymph % (Auto) [place] % (Auto) Lymph # Seg Neutrophils % Activated Clotting Time Sodium 136 L Creatinine 0.5 L Glucose 118 H Total Creatine Kinase 1282 H 1139 H 848 H CK-MB (CK-2) 83.6 H 70.6 H 44.6 H CK-MB (CK-2) Rel Index 6.5 H 6.1 H 5.2 H Troponin T 2.590 H* D Cholesterol LDL Cholesterol Direct HDL Cholesterol 12/04/18 12/04/18 05:12 05:12 RDW 12.7 L Lymph % (Auto) [place] % (Auto) 10.8 H Lymph # Seg Neutrophils % Activated Clotting Time Sodium Creatinine 0.6 L Glucose Total Creatine Kinase CK-MB (CK-2) CK-MB (CK-2) Rel Index Troponin T Cholesterol LDL Cholesterol Direct HDL Cholesterol
--- NOTE | 2018-12-05 13:45 | Progress Note ---
Assessment and Plan STEMI With suspected coronary vasospasm Pt c/o headache with Imdur and Imdur d/c'd - headache has since resolved. Cont cardizem, lisinopril. Cont asa, statin, brilinta. D/c home on PRN SL nitro. Mild LV dysfunction EF 40-45% with apical hypokinesis Cont CCB in lieu of BB in setting of suspected coronary vasospasm. Cont lisinopril. Nonobstructive CAD Cont cardizem, lisinopril, asa, statin, brilinta. Currently stable cardiac status. Pt may discharge home from cardiology standpoint. At discharge, convert Q6H cardizem to cardizem 120mg daily and provide rx for PRN SL nitro. Cont all other present cardiac management. Cessation of advised. Pt verbalizes understanding. Follow up in our [place] office with Dr. Stafford on 12/11/2018 @ 12:00PM. The patient has been seen in conjunction with Dr. Cummings who agrees with the assessment and plan of care. Subjective Date of service: 12/05/18 Principal diagnosis: stemi Interval history: pt resting comfortably in bed, no current cardiac complaints. headache has resolved since d/c of Imdur. VSS. Mother at bedside. Objective Last Vital Signs Temp 98.0 F 12/05/18 08:06 Pulse 63 12/05/18 10:36 Resp 18 12/05/18 10:35 BP 107/63 12/05/18 10:36 Pulse Ox 96 12/05/18 08:06 - Physical Examination General: No Apparent Distress HEENT: Positive: PERRL, Normocephaly, Mucus Membranes Moist Neck: Positive: neck supple, trachea midline Cardiac: Positive: Reg Rate and Rhythm, S1/S2 Lungs: Positive: clear to auscultation Neuro: Positive: Grossly Intact Abdomen: Positive: Soft. Negative: Tender Skin: Negative: Rash - Imaging and Cardiology EKG: report reviewed, image reviewed Echo: report reviewed (EF 40-45% with apical hypokinesis.) Cardiac cath: report reviewed
--- NOTE | 2018-12-05 14:34 | Vascular Lab Report ---
PROCEDURE: VL VENOUS DUPLEX LE BILAT TECHNIQUE: Duplex Doppler ultrasound examination of the venous system of the right leg and left leg HISTORY: leg pain ,evaluate for DVT COMPARISONS: None FINDINGS: RIGHT LEG: Normal compressibility, vascular patency, and augmentation are present diffusely throughout the visua lized portion of the deep veins. No abnormal intraluminal echoes are visualized to suggest deep vein thrombus. IMPRESSION: No ultrasound evidence of DVT in the right leg LEFT LEG: Normal compressibility, vascular patency, and augmentation are present diffusely throughout the visua lized portion of the deep veins. No abnormal intraluminal echoes are visualized to suggest deep vein thrombus. IMPRESSION: No ultrasound evidence of DVT in the left leg This document is electronically signed by Kyle Petersen MD., December 05 2018 02:32:13 PM ET
[2018-12-05 15:46] VITALS: BP 137/82
== END 2018-12-05 16:45 | disposition home or self-care (01) | DRG 282 ==
LOC: ED 17:14 → CC1 17:48 → 4A 12-03 17:31
PROVIDERS: ADMIT Internal Medicine; ATTEND Internal Medicine
PROC: 4A023N7 Measurement of Cardiac Sampling and Pressure, Left Heart, Percutaneous Approach (ICD-10-PCS; principal; 2018-12-02)
PROC: B2111ZZ Fluoroscopy of Multiple Coronary Arteries using Low Osmolar Contrast (ICD-10-PCS; 2018-12-02)
PROC: B241ZZ3 Ultrasonography of Multiple Coronary Arteries, Intravascular (ICD-10-PCS; 2018-12-02)
DX: I21.09 ST elevation (STEMI) myocardial infarction involving other coronary artery of anterior wall (principal); I25.10 Atherosclerotic heart disease of native coronary artery without angina pectoris; E66.9 Obesity, unspecified; I10 Essential (primary) hypertension; Z68.32 Body mass index [BMI] 32.0-32.9, adult; Z83.3 Family history of diabetes mellitus; Z82.49 Family history of ischemic heart disease and other diseases of the circulatory system; Z79.899 Other long term (current) drug therapy; Z71.3 Dietary counseling and surveillance
CPT/HCPCS: 36415; 71045; 80048; 80061; 82550; 82553; 82962; 84484; 85014; 85018; 85025; 85049; 85347; 85610; 85730; 86850; 86900; 86901; 92978; 93005; 93010; 93306; 93454; 93970; 94760; G0378; A9270-GY; C1753; C1769; C1887; C1894; J0171; J0461; J1170; J1644; J1650; J2001; J2250; J2270; J2370; J2405; J3010; J7030; J7040; Q9967

== ENCOUNTER 2019-10-21 18:43 | Emergency (ER) | payer BC, MEDICAID ==
[2019-10-21] MEDS ORDERED: ACETAMINOPHEN 325 MG TAB PO ONE (19:08)
--- NOTE | 2019-10-21 19:08 | Emergency Department Report ---
Blank Doc - Documentation Documentation: 39-year-old female that presents with left flank pain with radiation to pelvic area. Stated has some nausea. This initial assessment/diagnostic orders/clinical plan/treatment(s) is/are subject to change based on patient's health status, clinical progression and re- assessment by fellow clinical providers in the ED. Further treatment and workup at subsequent clinical providers discretion. Patient/guardians urged not to elope from the ED as their condition may be serious if not clinically assessed and managed. Initial orders include: 1- Patient sent to [facility] for further evaluation and treatment 2- labs 3- UA
[2019-10-21] MEDS ORDERED: ACETAMINOPHEN 325 MG TAB ONE (19:11)
[2019-10-21 19:51] LABS: Basophils # (Auto) 0.1 K/mm3 (0.0-0.1); Basophils % (Auto) 0.8 % (0.0-1.8); Eosinophils # (Auto) 0.1 K/mm3 (0.0-0.4); Eosinophils % (Auto) 0.5 % (0.0-4.3); Hematocrit 26.3 % (30.3-42.9); Hemoglobin 8.7 gm/dl (10.1-14.3); Lymphocytes # (Auto) 1.7 K/mm3 (1.2-5.4); Lymphocytes % (Auto) 15.8 % (13.4-35.0); Mean Corpuscular HGB Conc 33 % (30-34); Mean Corpuscular Volume 76 fl (79-97); Monocytes # (Auto) 1.1 K/mm3 (0.0-0.8); Platelet Count 310 K/mm3 (140-440); Red Blood Count 3.46 M/mm3 (3.65-5.03); Red Cell Distribution Width 16.4 % (13.2-15.2)
[2019-10-21 20:10] LABS: Alanine Aminotransferase 15 units/L (7-56); Albumin 4.4 g/dL (3.9-5); BUN/Creatinine Ratio 13; Blood Urea Nitrogen 8 mg/dL (7-17); Calcium 9.4 mg/dL (8.4-10.2); Hemolysis Index 0
[2019-10-21 21:24] LABS: Bacteria,Urine 4+ /HPF (Negative); Bilirubin,Urine NEG (Negative); Blood,Urine LG (Negative); Color,Urine Yellow (Yellow); Hyaline Casts,Urine 20 /LPF; Urobilinogen,Urine < 2.0 mg/dL (<2.0); WBC,Urine > 182.0 /HPF (0.0-6.0)
[2019-10-21] MEDS ORDERED: MORPHINE 4 MG/1 ML INJ IV ONE ×2 (22:32→23:00)
[2019-10-21] MEDS ORDERED: ONDANSETRON 4 MG/2 ML INJ IV ONE (22:34)
--- NOTE | 2019-10-21 22:37 | Emergency Department Report ---
ED Back Pain/Injury HPI - General Chief Complaint: Back Pain/Injury Stated Complaint: FLANK PAIN, ABD PAIN, PAIN WHEN URINING Time Seen by Provider: 10/21/19 19:06 Source: patient Mode of arrival: Ambulatory Limitations: No Limitations - History of Present Illness Initial Comments: Mrs. Lewis is a 39-year-old female with history of hypertension, CAD status post STEMI PCI, who presents with sudden onset of left flank pain while at work. Pain began at 5 PM. Left lower back pain travels to left groin. She is currently menstruating. Consequently she has not noticed hematuria. Positive nausea without vomiting. No previous history of kidney stones. Tylenol provided only minimal relief. Pain feels like labor contractions. MD Complaint: back pain -: Sudden Similar Symptoms Previously: No Place: work Radiation: groin Severity: severe Severity scale (0 -10): 10 Quality: dull, aching Consistency: constant Improves With: none Worsens With: none Context: other (Unrelated to movement or trauma ) Associated Symptoms: other (Nausea) - Related Data Home Medications Medication Instructions Recorded Confirmed Last Taken Metoprolol [Lopressor] 25 mg PO DAILY 10/21/19 10/21/19 Unknown Previous Rx's Medication Instructions Recorded Last Taken Type Aspirin [Aspirin BABY CHEW TAB] 81 mg PO QDAY #30 tab.chew 12/05/18 Unknown Rx AtorvaSTATin [Lipitor] 80 mg PO QHS #30 tablet 12/05/18 Unknown Rx Ticagrelor [Brilinta] 90 mg PO BID #60 tablet 12/05/18 Unknown Rx lisinopriL [Zestril TAB] 5 mg PO QDAY #30 tablet 12/05/18 Unknown Rx Tamsulosin [Flomax] 0.4 mg PO QDAY 7 Days #7 cap 10/22/19 Unknown Rx cephALEXin [Keflex] 500 mg PO Q6HR 7 Days #28 capsule 10/22/19 Unknown Rx oxyCODONE /ACETAMINOPHEN [Percocet 1 tab PO Q6HR PRN #10 tablet 10/22/19 Unknown Rx 5/325] Allergies Allergy/AdvReac Type Severity Reaction Status Date / Time No Known Allergies Allergy Verified 10/21/16 18:59 ED Review of Systems ROS: Stated complaint: FLANK PAIN, ABD PAIN, PAIN WHEN URINING Other details as noted in HPI Comment: All other systems reviewed and negative Constitutional: denies: fever, malaise Respiratory: denies: cough Cardiovascular: denies: chest pain Gastrointestinal: nausea. denies: abdominal pain Musculoskeletal: back pain ED Past Medical Hx - Past Medical History Previous Medical History?: Yes Hx Hypertension: Yes Hx Heart Attack/AMI: Yes Hx Congestive Heart Failure: No Hx Diabetes: No Hx Deep Vein Thrombosis: No Hx Renal Disease: No Hx Sickle Cell Disease: No Hx Seizures: No Hx Asthma: No Hx COPD: No Hx HIV: No - Surgical History Past Surgical History?: Yes Hx Open Heart Surgery: No Hx Cholecystectomy: No Hx Appendectomy: No Hx Breast Surgery: No Additional Surgical History: x4 - Social History Smoking Status: Never Smoker Substance Use Type: None - Medications Home Medications: Home Medications Medication Instructions Recorded Confirmed Last Taken Type Aspirin [Aspirin BABY CHEW TAB] 81 mg PO QDAY #30 tab.chew 12/05/18 10/21/19 Unknown Rx AtorvaSTATin [Lipitor] 80 mg PO QHS #30 tablet 12/05/18 10/21/19 Unknown Rx Ticagrelor [Brilinta] 90 mg PO BID #60 tablet 12/05/18 10/21/19 Unknown Rx lisinopriL [Zestril TAB] 5 mg PO QDAY #30 tablet 12/05/18 10/21/19 Unknown Rx Metoprolol [Lopressor] 25 mg PO DAILY 10/21/19 10/21/19 Unknown History Tamsulosin [Flomax] 0.4 mg PO QDAY 7 Days #7 cap 10/22/19 Unknown Rx cephALEXin [Keflex] 500 mg PO Q6HR 7 Days #28 capsule 10/22/19 Unknown Rx oxyCODONE /ACETAMINOPHEN [Percocet 1 tab PO Q6HR PRN #10 tablet 10/22/19 Unknown Rx 5/325] ED Physical Exam - General Limitations: No Limitations General appearance: alert, in no apparent distress, other (Appears uncomfortable) - Head Head exam: Present: atraumatic, normocephalic - Eye Eye exam: Present: normal appearance - ENT ENT exam: Present: mucous membranes moist - Neck Neck exam: Present: normal inspection, full ROM - Respiratory Respiratory exam: Present: normal lung sounds bilaterally. Absent: respiratory distress, wheezes, rales, rhonchi - Cardiovascular Cardiovascular Exam: Present: regular rate, normal rhythm, normal heart sounds. Absent: systolic murmur, diastolic murmur, rubs, gallop - GI/Abdominal GI/Abdominal exam: Present: soft, normal bowel sounds. Absent: distended, tenderness, guarding, rebound - Extremities Exam Extremities exam: Present: normal inspection - Neurological Exam Neurological exam: Present: alert, oriented X3 - Psychiatric Psychiatric exam: Present: normal affect, normal mood - Skin Skin exam: Present: warm, dry, intact, normal color. Absent: rash ED Course Vital Signs 10/21/19 10/21/19 10/21/19 19:07 19:23 20:56 Temperature 99.1 F Pulse Rate 71 Respiratory 18 18 Rate Blood Pressure 115/62 O2 Sat by Pulse 100 100 Oximetry 10/21/19 10/21/19 10/21/19 21:00 21:46 22:00 Temperature Pulse Rate Respiratory Rate Blood Pressure 94/43 119/68 104/57 O2 Sat by Pulse 100 100 100 Oximetry ED Medical Decision Making - Lab Data Result diagrams: 10/21/19 19:22 10/21/19 19:22 Laboratory Results - last 24 hr 10/21/19 10/21/19 10/21/19 19:22 19:22 19:22 WBC 10.8 RBC 3.46 L Hgb 8.7 L Hct 26.3 L MCV 76 L MCH 25 L MCHC 33 RDW 16.4 H Plt Count 310 Lymph % (Auto) 15.8 [place] % (Auto) 10.0 H Eos % (Auto) 0.5 Baso % (Auto) 0.8 Lymph # 1.7 [place] # 1.1 H Eos # 0.1 Baso # 0.1 Seg Neutrophils % 72.9 H Seg Neutrophils # 7.8 H Sodium 135 L Potassium 3.8 Chloride 102.4 Carbon Dioxide 18 L Anion Gap 18 BUN 8 Creatinine 0.6 L Estimated GFR > 60 BUN/Creatinine Ratio 13 Glucose 108 H Calcium 9.4 Total Bilirubin 1.00 AST 17 ALT 15 Alkaline Phosphatase 60 Total Protein 7.7 Albumin 4.4 Albumin/Globulin Ratio 1.3 HCG, Qual Negative Urine Color Urine Turbidity Urine pH Ur Specific [place] Urine Protein Urine Glucose (UA) Urine Ketones Urine Blood Urine Nitrite Urine Bilirubin Urine Urobilinogen Ur Leukocyte Esterase Urine WBC (Auto) Urine RBC (Auto) U Epithel Cells (Auto) Urine Bacteria (Auto) Urine WBC Clumps Hyaline Casts Urine Yeast (Budding) 10/21/19 21:09 WBC RBC Hgb Hct MCV MCH MCHC RDW Plt Count Lymph % (Auto) [place] % (Auto) Eos % (Auto) Baso % (Auto) Lymph # [place] # Eos # Baso # Seg Neutrophils % Seg Neutrophils # Sodium Potassium Chloride Carbon Dioxide Anion Gap BUN Creatinine Estimated GFR BUN/Creatinine Ratio Glucose Calcium Total Bilirubin AST ALT Alkaline Phosphatase Total Protein Albumin Albumin/Globulin Ratio HCG, Qual Urine Color Yellow Urine Turbidity Cloudy Urine pH 7.0 Ur Specific [place] 1.004 Urine Protein 100 mg/dl Urine Glucose (UA) Neg Urine Ketones Neg Urine Blood Lg Urine Nitrite Neg Urine Bilirubin Neg Urine Urobilinogen < 2.0 Ur Leukocyte Esterase Lg Urine WBC (Auto) > 182.0 H Urine RBC (Auto) 22.0 U Epithel Cells (Auto) < 1.0 Urine Bacteria (Auto) 4+ Urine WBC Clumps 3+ Hyaline Casts 20 Urine Yeast (Budding) 3+ - Radiology Data Radiology results: report reviewed Mild left hydroureteronephrosis without visible calculus within the ureter, diffuse urinary bladder wall thickening - Medical Decision Making Mrs. Anderson presents with sudden onset of left flank pain. Her pain is characteristic of renal colic. On CT scan there is mild hydro-and nephrosis and hydroureter. Possible recently passed stone. Will cover for both pyelonephritis and renal colic. She received IV ceftriaxone in the emergency department. Prescribed cephalexin, Percocet, Flomax. Referred to urologist. Urinalysis has pyuria and bacteria. Labs noted for normal white count, anemia, normal kidney function. Critical care attestation.: If time is entered above; I have spent that time in minutes in the direct care of this critically ill patient, excluding procedure time. ED Disposition Clinical Impression: Urinary tract infection, Kidney stone on left side Disposition: DC-01 TO HOME OR SELFCARE Is pt being admited?: No Does the pt Need Aspirin: No Condition: Stable Instructions: Kidney Stones (ED) Prescriptions: Tamsulosin [Flomax] 0.4 mg PO QDAY 7 Days #7 cap cephALEXin [Keflex] 500 mg PO Q6HR 7 Days #28 capsule oxyCODONE /ACETAMINOPHEN [Percocet 5/325] 1 tab PO Q6HR PRN #10 tablet PRN Reason: Pain Referrals: MAGGI ORO MD [Staff Physician] - 3-5 Days Forms: Work/School Release Form(ED)
--- NOTE | 2019-10-22 00:20 | Cat Scan Report ---
CT abdomen pelvis wo con INDICATION / CLINICAL INFORMATION: Left flank pain. TECHNIQUE: Axial CT imaging of abdomen and pelvis was obtained without contrast. Coronal and sagittal reformatte d imaging obtained and reviewed. All CT scans at this location are performed using CT dose reduction for ALARA by means of automated exposure control. COMPARISON: None available. FINDINGS: CT abdomen without contrast demonstrates normal appearance of the liver, spleen, pancreas, right kidn ey, and adrenal glands. No obvious gallbladder pathology. There is mild left hydroureteronephrosis pr esent, but there is no visible calculus within the ureter. There is diffuse urinary bladder wall thic kening but no focal discrete mass within the bladder identified. No calculi are seen within either ki dney. CT pelvis without contrast demonstrates mildly enlarged uterus. Normal appendix is present. GI tract is grossly unremarkable. Visualized lung bases are clear. No significant osseous abnormality. IMPRESSION: 1. Mild left hydroureteronephrosis. Source of the obstruction is not identified. There is no visible calculus within the ureter. There is prominent diffuse urinary bladder wall thickening which potentia lly could be a source for the obstruction. There could also have been recent passage of a stone with residual edema still accounting for the mild hydronephrosis. Please correlate clinically. 2. Mildly enlarged uterus. Signer Name: Elissa Vargas MD Signed: 10/22/2019 12:16 AM Workstation Name: [id number]
[2019-10-22] MEDS ORDERED: cefTRIAXone/NS 2 GM/100 ML 2 GM/100 ML BAG IV ONE (00:42)
[2019-10-22] MEDS ORDERED: oxyCODONE /ACETAMINOPHEN 5-325MG TAB PO ONE (00:42)
[2019-10-22] MEDS ORDERED: TAMSULOSIN 0.4 MG CAP PO ONE (01:15)
[2019-10-22 05:50] VITALS: BP 99/62
== END 2019-10-22 03:00 | disposition home or self-care (01) ==
LOC: ED 18:43
DX: N20.0 Calculus of kidney (principal); N39.0 Urinary tract infection, site not specified; I10 Essential (primary) hypertension; I25.2 Old myocardial infarction; Z79.899 Other long term (current) drug therapy; Z79.82 Long term (current) use of aspirin; Z98.890 Other specified postprocedural states
CPT/HCPCS: 36415; 74176; 80053; 81001; 84703; 85025; 93005; 93010; 96365; 96375; 96376; 99284; J0696; J2270; J2405